=== PATIENT | female | born 1960 | race Caucasian/White ===

== ENCOUNTER 2018-06-08 10:31 | Inpatient (IN) | payer BC, MEDICAID, OTHER ==
[2018-06-08 10:38] VITALS: BMI 24.2
[2018-06-08 11:57] LABS: BASO % 0.3 % (0.0-2.0); EOS # 0.1 K/uL (0.0-0.7); EOS % 1.8 % (0.0-4.0); LYMPH # 2.9 K/uL (1.0-4.3); LYMPH % 45.9 % (20.0-40.0); MEAN CELL VOLUME 113.3 fL (81.0-99.0); MEAN CORPUSCULAR HEMOGLOBIN 40.8 pg (27.0-31.0); MEAN PLATELET VOLUME 8.5 fL (7.2-11.7); MONO # 0.2 K/uL (0.0-0.8); MONO % 3.2 % (0.0-10.0); NEUT % 48.8 % (50.0-75.0); NRBC % 0.2 % (0.0-2.0); RBC 1.16 Mil/uL (3.80-5.20); RED CELL DISTRIBUTION WIDTH 29.7 % (11.5-14.5); WHITE BLOOD COUNT 6.2 K/uL (4.8-10.8)
[2018-06-08 12:04] LABS: HEMOGLOBIN 4.7 g/dL (11.0-16.0)
[2018-06-08 12:13] LABS: ALB/GLOB RATIO 1.9 (1.0-2.1); ALBUMIN 4.7 g/dL (3.5-5.0); ALT/SGPT 55 U/L (9-52); AST/SGOT 118 U/L (14-36); BLOOD UREA NITROGEN 9 mg/dL (7-17); CALCIUM 9.3 mg/dl (8.6-10.4); GFR AFRICAN-AMERICAN > 60; GFR NON-AFRICAN AMERICAN > 60; LIPASE 91 U/L (23-300)
[2018-06-08 12:23] LABS: SQUAMOUS EPITHIAL 2 /hpf (0-5); URINE BACTERIA OCC (<OCC); URINE BILIRUBIN NEGATIVE (NEGATIVE); URINE BLOOD NEGATIVE (NEGATIVE); URINE CLARITY Clear (Clear); URINE COLOR Yellow (YELLOW); URINE GLUCOSE (UA) NORMAL (Normal); URINE LEUKOCYTE ESTERASE 3+ Leu/uL (Negative); URINE PROTEIN NEGATIVE (NEGATIVE)
--- NOTE | 2018-06-08 12:27 | C.PDOC ---
History Of Present Illness 57yo female, otherwise well, comes to ER with complaints of "yellow" skin. Patient states she had UTI symptoms 1 month ago, including hematuria x couple days. Patient states she did not get a chance to see her PMD as they were away on vacation and was seen yesterday. She had a UDip done in office which showed UTI. Patient was started on a course of cipro. She presents today as her symptoms are still present. She denies any headache, dizziness, palpitations, shortness of breath, or chest pain. She offers no additional medical complaints. Time Seen by Provider: 06/08/18 11:27 Chief Complaint (Nursing): Female Genitourinary History Per: Patient History/Exam Limitations: no limitations Onset/Duration Of Symptoms: Persistent Current Symptoms Are (Timing): Still Present Reports Recently: Treated By A Physician Additional History Per: Patient Past Medical History Reviewed: Historical Data, Nursing Documentation, Vital Signs Vital Signs: Last Vital Signs Temp 98.4 F 06/12/18 07:00 Pulse 76 06/12/18 07:00 Resp 20 06/12/18 07:00 BP 108/66 06/12/18 07:00 Pulse Ox 99 06/12/18 07:00 - Medical History PMH: No Chronic Diseases Surgical History: No Surg Hx Family History: States: No Known Family Hx, Unknown Family Hx - Social History Hx Tobacco Use: No Hx Alcohol Use: No Hx Substance Use: No - Immunization History Hx Influenza Vaccination: No Hx Pneumococcal Vaccination: No Review Of Systems Except As Marked, All Systems Reviewed And Found Negative. Constitutional: Positive for: Other (yellow skin). Negative for: Fever, Chills Cardiovascular: Negative for: Chest Pain, Palpitations Respiratory: Negative for: Shortness of Breath Gastrointestinal: Negative for: Vomiting, Abdominal Pain, Hematochezia, Hematemesis Genitourinary: Positive for: Dysuria, Hematuria (now resolved) Musculoskeletal: Negative for: Back Pain Physical Exam - Physical Exam Appears: Non-toxic Skin: Warm, Dry, Pale, Jaundice Head: Atraumatic, Normacephalic Eye(s): bilateral: PERRL, EOMI, Conjunctiva Pale Oral Mucosa: Moist Neck: Normal ROM, Supple Chest: Symmetrical Cardiovascular: Rhythm Regular, No Murmur Respiratory: Normal Breath Sounds Gastrointestinal/Abdominal: Normal Exam, Soft, No Tenderness, No Guarding, No Rebound Back: Normal Inspection, No CVA Tenderness Extremity: Normal ROM, No Pedal Edema Neurological/Psych: Oriented x3, Normal Speech, Normal Cognition, Normal Motor, Normal Sensation ED Course And Treatment - Laboratory Results Result Diagrams: 06/12/18 07:08 06/12/18 07:08 O2 Sat by Pulse Oximetry: 100 (RA) Pulse Ox Interpretation: Normal Medical Decision Making Medical Decision Making: Plan: -- Labs -- Urine culture -- Urinalysis Rectal exam: Brown stool noted. No blood noted. Occult stool sent for analysis. Labs reviewed, and patient had low hemoglobin. Case discussed with Dr. Patel and patient to be admitted under hospitalist. Type and screen ordered for blood transfusion. [address] Tovar, hospitalist and patient admitted under his service. Disposition Discussed With DrAngel: Dereck Patel - Disposition Disposition: HOME/ ROUTINE Disposition Time: 12:26 Condition: SERIOUS - Clinical Impression Clinical Impression: Anemia - Scribe Statement The provider has reviewed the documentation as recorded by the Lucy Mendez Provider Attestation: All medical record entries made by the Jaspalibjackie were at my direction and personally dictated by me. I have reviewed the chart and agree that the record accurately reflects my personal performance of the history, physical exam, medical decision making, and the department course for this patient. I have also personally directed, reviewed, and agree with the discharge instructions and disposition. Decision To Admit - Pt Status Changed To: Hospital Disposition Of: Inpatient - Admit Certification Admit to Inpatient:: After my assessment, the patient will require hospitalization for at least two midnights. This is because of the severity of symptoms shown, intensity of services needed, and/or the medical risk in this patient being treated as an outpatient. - InPatient: Physician Admission Certification: I certify that this patient requires 2 or more midnights of care for the following reason:: severe anemia and complications - . Bed Request Type: Regular Patient Diagnosis: Anemia
[2018-06-08 13:33] LABS: MEAN CELL VOLUME 115.1 fL (81.0-99.0); MEAN CORPUSCULAR HGB CONC 35.6 g/dL (33.0-37.0); MEAN PLATELET VOLUME 8.4 fL (7.2-11.7); RBC 1.06 Mil/uL (3.80-5.20); WHITE BLOOD COUNT 4.9 K/uL (4.8-10.8)
[2018-06-08 13:38] LABS: HEMOGLOBIN 4.3 g/dL (11.0-16.0)
[2018-06-08 13:47] LABS: FDP INTERPRETATION POSITIVE (NEGATIVE); FDP QUANTITY >10<40 ug/mL (<10)
[2018-06-08 14:04] LABS: D DIMER 1832 ng/mlDDU (0-243)
--- NOTE | 2018-06-08 16:09 | CP.PCM.HP ---
History of Present Illness - History of Present Illness History of Present Illness: Medicine note for Hospitalist Service 57 year old postmenopausal female with PMHx: COPD presents to the ED with complaints of urinary frequency and fever for the past month. Patient also states that she noticed a change in color and odor of her urine from yellow to red and tailbone pain that started around the same time. She states that her tailbone pain feels tingly and does not radiate. She has been taking Tylenol 250 mg, twice a day, for the past 2 weeks for the fever and still going to work. 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 She denies having a UTI before. She also complains of generalized weakness, mild shortness of breath that she attributes with her COPD , and dark stools that she attributes to the new antibiotic that she is taking but does not know the name of. Her son at bedside states that she has looked more pale recently and her skin looks jaundiced. She also complains of a malodorous smell and itchiness from her vaginal but no vaginal discharge or bleeding that also started a month ago. She states that the malodorous smell from her vagina is the reason why she stopped eating meat several weeks ago. Patient denies dysuria, chest pain, palpitations, nausea, vomiting, diarrhea, constipation, abdominal pain, and numbness in the extremities. Present on Admission - Present on Admission Any Indicators Present on Admission: No History of DVT/PE: No History of Uncontrolled Diabetes: No Review of Systems - Constitutional Constitutional: Chills, Fatigue, Lethargy, Night Sweats. absent: Weight Loss - EENT Eyes: Other ("puffiness") Nose/Mouth/Throat: absent: Bleeding Gums, Throat Swelling, Tongue Swelling, Facial Pain, Neck Pain - Cardiovascular Cardiovascular: Palpitations. absent: Chest Pain, Dyspnea, Edema, Pain Radiating to Arm/Neck/Jaw, Leg Edema, Lightheadedness, Pedal Edema, Radiating Pain, Syncope - Respiratory Respiratory: absent: Cough, Hemoptysis, Wheezing, Snoring, Stridor - Gastrointestinal Gastrointestinal: Other (Dark stools) - Genitourinary Genitourinary: Hematuria, Urinary Frequency - Reproductive: Female Reproductive:Female: No Menses for 6 Months, Vaginal Odor. absent: Vaginal Discharge, Vaginal Pruritis - Menstruation Menstruation: Amenorrhea, Post Menopausal - Musculoskeletal Musculoskeletal: Back Pain Additional comments: coccygeal non radiating pain - Integumentary Integumentary: Jaundice Additional comments: paleness - Neurological Neurological: As Per HPI - Psychiatric Psychiatric: Anxiety - Endocrine Endocrine: Palpitations - Hematologic/Lymphatic Hematologic: As Per HPI Past Patient History - Past Medical History & Family History Past Medical History?: Yes Pertinent Family History: Mother and Father type 2 DM, Sister Immunodeficiency - Past Social History Smoking Status: Former Smoker Alcohol: Occasional - PULMONARY Hx Chronic Obstructive Pulmonary Disease (COPD): Yes - GENITOURINARY/GYNECOLOGICAL Other/Comment: Bilateral Laproscopic ovarian cyst removal - PSYCHIATRIC Hx Substance Use: No - SURGICAL HISTORY Hx Surgeries: Yes Other/Comment: cyst removal in ovary Meds Allergies/Adverse Reactions: Allergies Allergy/AdvReac Type Severity Reaction Status Date / Time Penicillins Allergy Verified 06/08/18 10:37 Physical Exam - Constitutional Appears: Non-toxic, In Acute Distress - Eye Exam Eye Exam: EOMI, Periorbital swelling, Scleral icterus. absent: Nystagmus - ENT Exam ENT Exam: Mucous Membranes Moist - Neck Exam Neck exam: Negative for: Lymphadenopathy - Respiratory Exam Respiratory Exam: Clear to Auscultation Bilateral, NORMAL BREATHING PATTERN. absent: Rales, Rhonchi, Wheezes - Cardiovascular Exam Cardiovascular Exam: RRR, +S1, +S2 - GI/Abdominal Exam GI & Abdominal Exam: Normal Bowel Sounds, Soft. absent: Distended, Firm, Tenderness - Extremities Exam Extremities exam: Positive for: full ROM, pedal pulses present. Negative for: calf tenderness, joint swelling, pedal edema, tenderness - Back Exam Back exam: tenderness (coccx) - Neurological Exam Neurological exam: Alert, CN II-XII Intact, Normal Gait, Oriented x3 - Psychiatric Exam Psychiatric exam: Anxious - Skin Skin Exam: Intact, Pallor, Warm Results - Vital Signs Recent Vital Signs: Last Vital Signs Temp 99.2 F 06/08/18 15:06 Pulse 115 H 06/08/18 15:06 Resp 20 06/08/18 15:06 BP 125/66 06/08/18 15:06 Pulse Ox 100 06/08/18 15:06 - Labs Result Diagrams: 06/08/18 13:29 06/08/18 11:51 Labs: Laboratory Results - last 24 hr 06/08/18 06/08/18 06/08/18 11:51 11:51 12:04 WBC 6.2 RBC 1.16 L Hgb 4.7 L* Hct 13.1 L MCV 113.3 H MCH 40.8 H MCHC 36.0 RDW 29.7 H Plt Count 125 L MPV 8.5 Neut % (Auto) 48.8 L Lymph % (Auto) 45.9 H [place] % (Auto) 3.2 Eos % (Auto) 1.8 Baso % (Auto) 0.3 Neut # (Auto) 3.0 Lymph # (Auto) 2.9 [place] # (Auto) 0.2 Eos # (Auto) 0.1 Baso # (Auto) 0.0 Differential Comment Smear Path Review Fibrin Degrad Products Fibrin Degrad Prod, Qt D-Dimer, Quantitative Sodium 139 Potassium 4.2 Chloride 101 Carbon Dioxide 26 Anion Gap 17 BUN 9 Creatinine 0.5 L Est GFR ( Amer) > 60 Est GFR (Non-Af Amer) > 60 Random Glucose 119 H Calcium 9.3 Total Bilirubin 2.2 H AST 118 H ALT 55 H Alkaline Phosphatase 54 Total Protein 7.2 Albumin 4.7 Globulin 2.5 Albumin/Globulin Ratio 1.9 Lipase 91 Urine Color Yellow Urine Clarity Clear Urine pH 6.0 Ur Specific [place] 1.015 Urine Protein Negative Urine Glucose (UA) Normal Urine Ketones Trace Urine Blood Negative Urine Nitrate Negative Urine Bilirubin Negative Urine Urobilinogen 2.0 H Ur Leukocyte Esterase 3+ H Urine WBC (Auto) 6 H Urine RBC (Auto) 1 Ur Squamous Epith Cells 2 Urine Bacteria Occ H Stool Occult Blood Blood Type Blood Type Confirm Antibody Screen 06/08/18 06/08/18 06/08/18 12:25 12:40 13:28 WBC RBC Hgb Hct MCV MCH MCHC RDW Plt Count MPV Neut % (Auto) Lymph % (Auto) [place] % (Auto) Eos % (Auto) Baso % (Auto) Neut # (Auto) Lymph # (Auto) [place] # (Auto) Eos # (Auto) Baso # (Auto) Differential Comment Smear Path Review Fibrin Degrad Products Positive H Fibrin Degrad Prod, Qt >10<40 H D-Dimer, Quantitative 1832 H Sodium Potassium Chloride Carbon Dioxide Anion Gap BUN Creatinine Est GFR ( Amer) Est GFR (Non-Af Amer) Random Glucose Calcium Total Bilirubin AST ALT Alkaline Phosphatase Total Protein Albumin Globulin Albumin/Globulin Ratio Lipase Urine Color Urine Clarity Urine pH Ur Specific [place] Urine Protein Urine Glucose (UA) Urine Ketones Urine Blood Urine Nitrate Urine Bilirubin Urine Urobilinogen Ur Leukocyte Esterase Urine WBC (Auto) Urine RBC (Auto) Ur Squamous Epith Cells Urine Bacteria Stool Occult Blood Negative Blood Type O POSITIVE Blood Type Confirm O POSITIVE Antibody Screen Negative 06/08/18 13:29 WBC 4.9 RBC 1.06 L Hgb 4.3 L* Hct 12.2 L MCV 115.1 H MCH 41.0 H MCHC 35.6 RDW 29.0 H Plt Count 107 L MPV 8.4 Neut % (Auto) Lymph % (Auto) [place] % (Auto) Eos % (Auto) Baso % (Auto) Neut # (Auto) Lymph # (Auto) [place] # (Auto) Eos # (Auto) Baso # (Auto) Differential Comment Smear Path Review Fibrin Degrad Products Fibrin Degrad Prod, Qt D-Dimer, Quantitative Sodium Potassium Chloride Carbon Dioxide Anion Gap BUN Creatinine Est GFR ( Amer) Est GFR (Non-Af Amer) Random Glucose Calcium Total Bilirubin AST ALT Alkaline Phosphatase Total Protein Albumin Globulin Albumin/Globulin Ratio Lipase Urine Color Urine Clarity Urine pH Ur Specific [place] Urine Protein Urine Glucose (UA) Urine Ketones Urine Blood Urine Nitrate Urine Bilirubin Urine Urobilinogen Ur Leukocyte Esterase Urine WBC (Auto) Urine RBC (Auto) Ur Squamous Epith Cells Urine Bacteria Stool Occult Blood Blood Type Blood Type Confirm Antibody Screen Assessment & Plan - Assessment and Plan (Free Text) Assessment: 57yo female with a PMH of COPD admitted with 1 month history of hematuria and increased frequency and 2 week history of vaginal discomfort, fevers, night sweats, chills, SOB . Plan: Anemia -Pt given 2 units of PRBCs starting at 4pm 06/08/2018 -Dr Harley (hematology) consulted -Dr Hoffman (GI) consulted plan: - Check RUQ US, f/u CT to further guide plan - Fractionate Bilirubin - Check Viral Hepatitis, INR, APAP lvl, TSH - Daily CBC, CMP - Agree with hemolytic w/u, consider Hematology consult -Hgb 4.3, D-Dimer 1833, Fibrin degr +, Likely hemolytic -Haptoglobin and LDH pending -Vit B12 and Folate levels pending Thrombocytopenia -Platelet count 104 -hemolysis likely process due to +fibrin, D-dimer, Bili 2.2, -Hematology consulted -AST 118, ALT 55 slightly elevated, -GI consulted: f/u abdominal ultrasound to r/o liver sequestration -will transfuse platelets if drops below 90 Macrocytosis -MCV 113 -RDW of 29. -Hgb 4.3 -Brown stool on ED exam and occult negative; therefore, GI source of bleeding unlikely. -possible hemolysis with +fibrin degradation and elevated D dimer. Coccygeal Pain -Pelvic CT ordered -R/o mets, infectious process -Tylenol PRN 650mg limit of 2g daily Shortness of Breath -likely due to anemia -COPD unlikely, LCTA bilaterally -2 units of PRBCs transfusing (06/08/2018) started 4pm -Abd and Pelvic CT pending: R/O possible source of bleed Hx of COPD - no acute exacerbation -on home nebulizer PRN -can start duonebs PRN disposition: Pt receiving 2 units of PRBCs, hematology consulted, Reji Womack PGY1
--- NOTE | 2018-06-08 16:22 | CP.PCM.CON ---
<Garrett Moreira - Last Filed: 06/08/18 16:44> History of Present Illness - History of Present Illness History of Present Illness: PGY-4 GI Fellow Initial Consult Note Mrs. Torres is a 57 yo Hisp Female with COPD presenting with complaint of yellow skin. She states that about 1 month ago she believes she began to have a UTI in that she noticed polyuria, back pain and that her urine appeared more orange in color. She ignored it for a few weeks thinking it would go away. About 10 days or so ago she then noticed her skin started to turn yellow, and she started to be feel some generalized weakness. A few days ago she called was finally tested for UTI with UA that returned dirty and she was given an antibiotic that she cannot recall the name of (Cipro?). However, after she continue with yellow skin and fatigue she decided to present to the ED for evaluation. In the ED, she was vitally stable with a HR 100-110, found to have a Hgb of 4.7 from unknown baseline. GI consulted for anemia. As far as her GI health, she states that she normally moves her bowels daily with yellow/brown formed stools. However, she thinks since taking the antibiotic for her UTI that they have become more dark brown. She denied any melena, hematochezia, hematemesis, weight loss, rashes. For the recent low back pain, she states that she has been taking two tabs of acetaminophen 250 mg in the AM. She denies any NSAIDs, EtOH use or illicit drugs. She has never had any EGD/CSPY. 12 point ROS negative other than stated above MHx: COPD SurgHx: Ovarian cyts Meds: Cipro? Acetaminophen FamHx: Denies h/o GI or Liver disorders SocHx: Quit tobacco and EtOH 7 years ago, 18 pack year smoker, denied illicits All: PCN - rash and swelling Past Patient History - Past Social History Smoking Status: Former Smoker - PSYCHIATRIC Hx Substance Use: No - SURGICAL HISTORY Hx Surgeries: Yes Other/Comment: cyst removal in ovary Meds Allergies/Adverse Reactions: Allergies Allergy/AdvReac Type Severity Reaction Status Date / Time Penicillins Allergy Verified 06/08/18 10:37 Physical Exam - Constitutional Appears: Well, Non-toxic, No Acute Distress - Head Exam Head Exam: ATRAUMATIC, NORMAL INSPECTION - Eye Exam Eye Exam: EOMI, Scleral icterus. absent: Conjunctival injection Additional comments: +Conjunctival pallor - ENT Exam ENT Exam: Mucous Membranes Moist, Normal External Ear Exam. absent: Mucous Membranes Dry - Respiratory Exam Respiratory Exam: Clear to Auscultation Bilateral, NORMAL BREATHING PATTERN. absent: Accessory Muscle Use, Chest Wall Tenderness, Prolonged Expiratory Phase , Respiratory Distress - Cardiovascular Exam Cardiovascular Exam: Tachycardia, REGULAR RHYTHM - GI/Abdominal Exam GI & Abdominal Exam: Normal Bowel Sounds, Soft. absent: Bruit, Diminished Bowel Sounds, Distended, Firm, Guarding, Hernia, Hyperactive Bowel Sounds, Hypoactive Bowel Sounds, Mass, Organomegaly, Pulsatile Mass, Rebound, Rigid, Tenderness - Rectal Exam Rectal Exam: Deferred Additional comments: Per document ED note, brown stool and occult negative; therefore did not repeat - Extremities Exam Extremities exam: Positive for: normal inspection. Negative for: joint swelling , pedal edema - Neurological Exam Neurological exam: Alert, CN II-XII Intact - Psychiatric Exam Psychiatric exam: Normal Affect, Normal Mood - Skin Skin Exam: Warm Additional comments: jaundiced Results - Vital Signs Recent Vital Signs: Last Vital Signs Temp 99.2 F 06/08/18 15:06 Pulse 115 H 06/08/18 15:06 Resp 20 06/08/18 15:06 BP 125/66 06/08/18 15:06 Pulse Ox 100 06/08/18 15:06 - Labs Result Diagrams: 06/08/18 13:29 06/08/18 11:51 Labs: Laboratory Results - last 24 hr 06/08/18 06/08/18 06/08/18 11:51 11:51 12:04 WBC 6.2 RBC 1.16 L Hgb 4.7 L* Hct 13.1 L MCV 113.3 H MCH 40.8 H MCHC 36.0 RDW 29.7 H Plt Count 125 L MPV 8.5 Neut % (Auto) 48.8 L Lymph % (Auto) 45.9 H Grainger % (Auto) 3.2 Eos % (Auto) 1.8 Baso % (Auto) 0.3 Neut # (Auto) 3.0 Lymph # (Auto) 2.9 Grainger # (Auto) 0.2 Eos # (Auto) 0.1 Baso # (Auto) 0.0 Differential Comment Smear Path Review Fibrin Degrad Products Fibrin Degrad Prod, Qt D-Dimer, Quantitative Sodium 139 Potassium 4.2 Chloride 101 Carbon Dioxide 26 Anion Gap 17 BUN 9 Creatinine 0.5 L Est GFR ( Amer) > 60 Est GFR (Non-Af Amer) > 60 Random Glucose 119 H Calcium 9.3 Total Bilirubin 2.2 H AST 118 H ALT 55 H Alkaline Phosphatase 54 Total Protein 7.2 Albumin 4.7 Globulin 2.5 Albumin/Globulin Ratio 1.9 Lipase 91 Urine Color Yellow Urine Clarity Clear Urine pH 6.0 Ur Specific [place] 1.015 Urine Protein Negative Urine Glucose (UA) Normal Urine Ketones Trace Urine Blood Negative Urine Nitrate Negative Urine Bilirubin Negative Urine Urobilinogen 2.0 H Ur Leukocyte Esterase 3+ H Urine WBC (Auto) 6 H Urine RBC (Auto) 1 Ur Squamous Epith Cells 2 Urine Bacteria Occ H Stool Occult Blood Blood Type Blood Type Confirm Antibody Screen 06/08/18 06/08/18 06/08/18 12:25 12:40 13:28 WBC RBC Hgb Hct MCV MCH MCHC RDW Plt Count MPV Neut % (Auto) Lymph % (Auto) Grainger % (Auto) Eos % (Auto) Baso % (Auto) Neut # (Auto) Lymph # (Auto) Grainger # (Auto) Eos # (Auto) Baso # (Auto) Differential Comment Smear Path Review Fibrin Degrad Products Positive H Fibrin Degrad Prod, Qt >10<40 H D-Dimer, Quantitative 1832 H Sodium Potassium Chloride Carbon Dioxide Anion Gap BUN Creatinine Est GFR ( Amer) Est GFR (Non-Af Amer) Random Glucose Calcium Total Bilirubin AST ALT Alkaline Phosphatase Total Protein Albumin Globulin Albumin/Globulin Ratio Lipase Urine Color Urine Clarity Urine pH Ur Specific [place] Urine Protein Urine Glucose (UA) Urine Ketones Urine Blood Urine Nitrate Urine Bilirubin Urine Urobilinogen Ur Leukocyte Esterase Urine WBC (Auto) Urine RBC (Auto) Ur Squamous Epith Cells Urine Bacteria Stool Occult Blood Negative Blood Type O POSITIVE Blood Type Confirm O POSITIVE Antibody Screen Negative 06/08/18 13:29 WBC 4.9 RBC 1.06 L Hgb 4.3 L* Hct 12.2 L MCV 115.1 H MCH 41.0 H MCHC 35.6 RDW 29.0 H Plt Count 107 L MPV 8.4 Neut % (Auto) Lymph % (Auto) Grainger % (Auto) Eos % (Auto) Baso % (Auto) Neut # (Auto) Lymph # (Auto) Grainger # (Auto) Eos # (Auto) Baso # (Auto) Differential Comment Smear Path Review Fibrin Degrad Products Fibrin Degrad Prod, Qt D-Dimer, Quantitative Sodium Potassium Chloride Carbon Dioxide Anion Gap BUN Creatinine Est GFR ( Amer) Est GFR (Non-Af Amer) Random Glucose Calcium Total Bilirubin AST ALT Alkaline Phosphatase Total Protein Albumin Globulin Albumin/Globulin Ratio Lipase Urine Color Urine Clarity Urine pH Ur Specific [place] Urine Protein Urine Glucose (UA) Urine Ketones Urine Blood Urine Nitrate Urine Bilirubin Urine Urobilinogen Ur Leukocyte Esterase Urine WBC (Auto) Urine RBC (Auto) Ur Squamous Epith Cells Urine Bacteria Stool Occult Blood Blood Type Blood Type Confirm Antibody Screen Assessment & Plan - Assessment and Plan (Free Text) Assessment: 57 yo Hisp Female with COPD presenting with jaundice and fatigue. # Acute Macrocytic Anemia: Hgb 4.7, MCV 113 with elevated RDW of 29. Brown stool on ED exam and occult negative; therefore, GI source of bleeding unlikely. Given anemia and jaundice concerning for possible hemolytic process with +fibrin degradation and elevated D dimer. # Jaundice, elevate bilirubin, elevated transaminases: Bili 2.2, AST 118, ALT 55. Could be related to hemolytic process again. Transaminases in EtOH pattern though patient reports sobriety for years. Painless jaundice always raises concern for malignancy, though somewhat reassuringly Alk Phos is not elevated. AST, ALT not elevated to the degree of acetaminophen OD, but should r /u given reports of taking recently. Plan: - Check RUQ US, f/u CT to further guide plan - Fractionate Bilirubin - Check Viral Hepatitis, INR, APAP lvl, TSH - Daily CBC, CMP - Agree with hemolytic w/u, consider Hematology consult Thanks you for the consult. Will cont to follow. Pt seen and examined with Dr. Hoffman <Clinton Hoffman Y - Last Filed: 06/08/18 18:29> Meds - Medications Medications: Current Medications Acetaminophen (Tylenol 325mg Tab) 650 mg PO Q4H PRN PRN Reason: Pain, moderate (4-7) Albuterol/Ipratropium (Duoneb 3 Mg/0.5 Mg (3 Ml) Ud) 3 ml INH RQ2 PRN PRN Reason: Shortness of Breath Folic Acid (Folic Acid) 1 mg PO BID ELVA Last Admin: 06/08/18 17:46 Dose: 1 mg Sodium Chloride (Sodium Chloride 0.9%) 1,000 mls @ 100 mls/hr IV .Q10H ELVA Results - Vital Signs Recent Vital Signs: Last Vital Signs Temp 98.7 F 06/08/18 17:46 Pulse 106 H 06/08/18 17:46 Resp 20 06/08/18 17:46 BP 118/76 06/08/18 17:46 Pulse Ox 100 06/08/18 15:06 - Labs Result Diagrams: 06/08/18 13:29 06/08/18 11:51 Labs: Laboratory Results - last 24 hr 06/08/18 06/08/18 06/08/18 11:51 11:51 12:04 WBC 6.2 RBC 1.16 L Hgb 4.7 L* Hct 13.1 L MCV 113.3 H MCH 40.8 H MCHC 36.0 RDW 29.7 H Plt Count 125 L MPV 8.5 Neut % (Auto) 48.8 L Lymph % (Auto) 45.9 H Grainger % (Auto) 3.2 Eos % (Auto) 1.8 Baso % (Auto) 0.3 Neut # (Auto) 3.0 Lymph # (Auto) 2.9 Grainger # (Auto) 0.2 Eos # (Auto) 0.1 Baso # (Auto) 0.0 Differential Comment Smear Path Review Haptoglobin Fibrin Degrad Products Fibrin Degrad Prod, Qt D-Dimer, Quantitative Sodium 139 Potassium 4.2 Chloride 101 Carbon Dioxide 26 Anion Gap 17 BUN 9 Creatinine 0.5 L Est GFR ( Amer) > 60 Est GFR (Non-Af Amer) > 60 Random Glucose 119 H Calcium 9.3 Total Bilirubin 2.2 H AST 118 H ALT 55 H Alkaline Phosphatase 54 Total Protein 7.2 Albumin 4.7 Globulin 2.5 Albumin/Globulin Ratio 1.9 Lipase 91 Urine Color Yellow Urine Clarity Clear Urine pH 6.0 Ur Specific [place] 1.015 Urine Protein Negative Urine Glucose (UA) Normal Urine Ketones Trace Urine Blood Negative Urine Nitrate Negative Urine Bilirubin Negative Urine Urobilinogen 2.0 H Ur Leukocyte Esterase 3+ H Urine WBC (Auto) 6 H Urine RBC (Auto) 1 Ur Squamous Epith Cells 2 Urine Bacteria Occ H Stool Occult Blood Blood Type Blood Type Confirm Antibody Screen 06/08/18 06/08/18 06/08/18 12:25 12:40 13:28 WBC RBC Hgb Hct MCV MCH MCHC RDW Plt Count MPV Neut % (Auto) Lymph % (Auto) Grainger % (Auto) Eos % (Auto) Baso % (Auto) Neut # (Auto) Lymph # (Auto) Grainger # (Auto) Eos # (Auto) Baso # (Auto) Differential Comment Smear Path Review Haptoglobin Fibrin Degrad Products Positive H Fibrin Degrad Prod, Qt >10<40 H D-Dimer, Quantitative 1832 H Sodium Potassium Chloride Carbon Dioxide Anion Gap BUN Creatinine Est GFR ( Amer) Est GFR (Non-Af Amer) Random Glucose Calcium Total Bilirubin AST ALT Alkaline Phosphatase Total Protein Albumin Globulin Albumin/Globulin Ratio Lipase Urine Color Urine Clarity Urine pH Ur Specific [place] Urine Protein Urine Glucose (UA) Urine Ketones Urine Blood Urine Nitrate Urine Bilirubin Urine Urobilinogen Ur Leukocyte Esterase Urine WBC (Auto) Urine RBC (Auto) Ur Squamous Epith Cells Urine Bacteria Stool Occult Blood Negative Blood Type O POSITIVE Blood Type Confirm O POSITIVE Antibody Screen Negative 06/08/18 06/08/18 06/08/18 13:29 16:45 16:46 WBC 4.9 RBC 1.06 L Hgb 4.3 L* Hct 12.2 L MCV 115.1 H MCH 41.0 H MCHC 35.6 RDW 29.0 H Plt Count 107 L MPV 8.4 Neut % (Auto) Lymph % (Auto) Grainger % (Auto) Eos % (Auto) Baso % (Auto) Neut # (Auto) Lymph # (Auto) Grainger # (Auto) Eos # (Auto) Baso # (Auto) Differential Comment Smear Path Review Haptoglobin < 20.0 L Fibrin Degrad Products Fibrin Degrad Prod, Qt D-Dimer, Quantitative Sodium Potassium Chloride Carbon Dioxide Anion Gap BUN Creatinine Est GFR ( Amer) Est GFR (Non-Af Amer) Random Glucose Calcium Total Bilirubin AST ALT Alkaline Phosphatase Total Protein Albumin Globulin Albumin/Globulin Ratio Lipase Urine Color Urine Clarity Urine pH Ur Specific [place] Urine Protein Urine Glucose (UA) Urine Ketones Urine Blood Urine Nitrate Urine Bilirubin Urine Urobilinogen Ur Leukocyte Esterase Urine WBC (Auto) Urine RBC (Auto) Ur Squamous Epith Cells Urine Bacteria Stool Occult Blood Negative Blood Type Blood Type Confirm Antibody Screen Attending/Attestation - Attestation I have personally seen and examined this patient.: Yes I have fully participated in the care of the patient.: Yes I have reviewed all pertinent clinical information: Yes Notes (Text): 06/08/18 18:21 I have seen and examined patient with GI fellow. Agree with above documentation with the following additions. In brief, this is a 57 year old female with history of COPD who presents to hospital with complaints of progressive fatigue and painless jaundice. She describes symptoms for the past 10 days which were getting worse prompting her to come to hospital. She reports recent UTI which she took Ciprofloxacin for 3 days. She also endorses loss of appetite with nausea, progressive lethargy and yellow appearance of skin and eyes. She denies abdominal pain, vomiting, weight loss, pruritis, or prior history of liver disease. She denies recent ETOH use, admits to minimal tylenol use for back related discomfort. No prior endoscopic evaluation. COPD Fatigue Macrocytic anemia Jaundice, transaminitis - Diet as tolerated - Patient currently receiving PRBC transfusion, monitor H/H. Rectal exam performed today showed brown stool, occult blood negative. - Obtain abdominal US to evaluate for biliary obstruction - CT imaging ordered by medical team, follow up results - Fractionate bilirubin, continue to monitor LFTs - Obtain viral hepatitis panel and acetaminophen level - Given loss of appetite in patient with prior heavy smoking history, malignancy must be ruled out. Will consider EGD evaluation tomorrow morning pending imaging results, NPO after midnight.
[2018-06-08] MEDS ORDERED: Iodixanol 320 MG/ML 100 ML BOTTLE IV ONE (16:27)
[2018-06-08] MEDS: Sodium Chloride 0.9% 1,000 ML IV SCH (18:00)
[2018-06-08] MEDS ORDERED: Albuterol-Ipratrop 3 mg / 0.5 (3 ml) UD INH PRN (18:05)
[2018-06-08 18:46] LABS: FOLATE > 20.0 ng/mL
[2018-06-08 19:04] LABS: BILIRUBIN,DIRECT 0.7 mg/dL (0.0-0.4)
[2018-06-08 19:36] LABS: HEPATITIS B SURFACE AG Negative (NEGATIVE)
[2018-06-08 19:41] LABS: HEPATITIS A IGM NEGATIVE (NEGATIVE)
[2018-06-08 19:42] LABS: HEPATITIS B CORE AB NEGATIVE (NEGATIVE)
[2018-06-08 19:53] LABS: HEPATITIS C ANTIBODY NEGATIVE (NEGATIVE)
--- NOTE | 2018-06-08 20:22 | CP.PCM.CON ---
History of Present Illness - History of Present Illness History of Present Illness: 57 yo woman admitted with severe anemia and pancytopenia, increased total bili, SGOT, very high LDH, decreased haptoglobin, R/O acute hemolytic anemia, Beverly and retics pending. The patient is currently in radilolgy getting CAT scan. DD- Autoimmune hemolytic anemia, Beverly positive, Beverly negative-cryoglobulinemia, ?? PNH- pancytopenia, usually associated with iron def and hemoglobinuria, hemoglobinopathy unlikely, will need to do testing for G6PD(levels normal during hemolysis) after acute hemolytic process resolves, if all else negative Past Patient History - Past Medical History & Family History Past Medical History?: Yes - Past Social History Smoking Status: Former Smoker - PULMONARY Hx Chronic Obstructive Pulmonary Disease (COPD): Yes - MUSCULOSKELETAL/RHEUMATOLOGICAL Hx Falls: No - GENITOURINARY/GYNECOLOGICAL Other/Comment: Bilateral Laproscopic ovarian cyst removal - PSYCHIATRIC Hx Substance Use: No - SURGICAL HISTORY Hx Surgeries: Yes Other/Comment: cyst removal in ovary - ANESTHESIA Hx Anesthesia: Yes Hx Anesthesia Reactions: No Hx Malignant Hyperthermia: No Has any member of the family had a problem w/ anesthesia?: No Meds Allergies/Adverse Reactions: Allergies Allergy/AdvReac Type Severity Reaction Status Date / Time Penicillins Allergy Verified 06/08/18 10:37 - Medications Medications: Current Medications Acetaminophen (Tylenol 325mg Tab) 650 mg PO Q4H PRN PRN Reason: Pain, moderate (4-7) Albuterol/Ipratropium (Duoneb 3 Mg/0.5 Mg (3 Ml) Ud) 3 ml INH RQ2 PRN PRN Reason: Shortness of Breath Folic Acid (Folic Acid) 1 mg PO BID ELVA Last Admin: 06/08/18 17:46 Dose: 1 mg Sodium Chloride (Sodium Chloride 0.9%) 1,000 mls @ 100 mls/hr IV .Q10H ELVA Results - Vital Signs Recent Vital Signs: Last Vital Signs Temp 99.4 F 06/08/18 19:44 Pulse 89 06/08/18 19:44 Resp 20 06/08/18 19:44 BP 101/59 L 06/08/18 19:44 Pulse Ox 100 06/08/18 15:06 - Labs Result Diagrams: 06/08/18 13:29 06/08/18 11:51 Labs: Laboratory Results - last 24 hr 06/08/18 06/08/18 06/08/18 11:51 11:51 12:04 WBC 6.2 RBC 1.16 L Hgb 4.7 L* Hct 13.1 L MCV 113.3 H MCH 40.8 H MCHC 36.0 RDW 29.7 H Plt Count 125 L MPV 8.5 Neut % (Auto) 48.8 L Lymph % (Auto) 45.9 H Bee % (Auto) 3.2 Eos % (Auto) 1.8 Baso % (Auto) 0.3 Neut # (Auto) 3.0 Lymph # (Auto) 2.9 Bee # (Auto) 0.2 Eos # (Auto) 0.1 Baso # (Auto) 0.0 Differential Comment Smear Path Review Haptoglobin Fibrin Degrad Products Fibrin Degrad Prod, Qt D-Dimer, Quantitative Sodium 139 Potassium 4.2 Chloride 101 Carbon Dioxide 26 Anion Gap 17 BUN 9 Creatinine 0.5 L Est GFR ( Amer) > 60 Est GFR (Non-Af Amer) > 60 Random Glucose 119 H Calcium 9.3 Total Bilirubin 2.2 H Direct Bilirubin AST 118 H ALT 55 H Alkaline Phosphatase 54 Lactate Dehydrogenase Total Protein 7.2 Albumin 4.7 Globulin 2.5 Albumin/Globulin Ratio 1.9 Lipase 91 Vitamin B12 Folate TSH 3rd Generation Urine Color Yellow Urine Clarity Clear Urine pH 6.0 Ur Specific [place] 1.015 Urine Protein Negative Urine Glucose (UA) Normal Urine Ketones Trace Urine Blood Negative Urine Nitrate Negative Urine Bilirubin Negative Urine Urobilinogen 2.0 H Ur Leukocyte Esterase 3+ H Urine WBC (Auto) 6 H Urine RBC (Auto) 1 Ur Squamous Epith Cells 2 Urine Bacteria Occ H Stool Occult Blood Hepatitis A IgM Ab Hep Bs Antigen Hep B Core IgM Ab Hepatitis C Antibody Blood Type Blood Type Confirm Antibody Screen 06/08/18 06/08/18 06/08/18 12:25 12:40 13:28 WBC RBC Hgb Hct MCV MCH MCHC RDW Plt Count MPV Neut % (Auto) Lymph % (Auto) Bee % (Auto) Eos % (Auto) Baso % (Auto) Neut # (Auto) Lymph # (Auto) Bee # (Auto) Eos # (Auto) Baso # (Auto) Differential Comment Smear Path Review Haptoglobin Fibrin Degrad Products Positive H Fibrin Degrad Prod, Qt >10<40 H D-Dimer, Quantitative 1832 H Sodium Potassium Chloride Carbon Dioxide Anion Gap BUN Creatinine Est GFR ( Amer) Est GFR (Non-Af Amer) Random Glucose Calcium Total Bilirubin Direct Bilirubin AST ALT Alkaline Phosphatase Lactate Dehydrogenase Total Protein Albumin Globulin Albumin/Globulin Ratio Lipase Vitamin B12 Folate TSH 3rd Generation Urine Color Urine Clarity Urine pH Ur Specific [place] Urine Protein Urine Glucose (UA) Urine Ketones Urine Blood Urine Nitrate Urine Bilirubin Urine Urobilinogen Ur Leukocyte Esterase Urine WBC (Auto) Urine RBC (Auto) Ur Squamous Epith Cells Urine Bacteria Stool Occult Blood Negative Hepatitis A IgM Ab Hep Bs Antigen Hep B Core IgM Ab Hepatitis C Antibody Blood Type O POSITIVE Blood Type Confirm O POSITIVE Antibody Screen Negative 06/08/18 06/08/18 06/08/18 13:29 16:45 16:45 WBC 4.9 RBC 1.06 L Hgb 4.3 L* Hct 12.2 L MCV 115.1 H MCH 41.0 H MCHC 35.6 RDW 29.0 H Plt Count 107 L MPV 8.4 Neut % (Auto) Lymph % (Auto) Bee % (Auto) Eos % (Auto) Baso % (Auto) Neut # (Auto) Lymph # (Auto) Bee # (Auto) Eos # (Auto) Baso # (Auto) Differential Comment Smear Path Review Haptoglobin < 20.0 L Fibrin Degrad Products Fibrin Degrad Prod, Qt D-Dimer, Quantitative Sodium Potassium Chloride Carbon Dioxide Anion Gap BUN Creatinine Est GFR ( Amer) Est GFR (Non-Af Amer) Random Glucose Calcium Total Bilirubin Direct Bilirubin AST ALT Alkaline Phosphatase Lactate Dehydrogenase 62674 H Total Protein Albumin Globulin Albumin/Globulin Ratio Lipase Vitamin B12 Folate TSH 3rd Generation Urine Color Urine Clarity Urine pH Ur Specific [place] Urine Protein Urine Glucose (UA) Urine Ketones Urine Blood Urine Nitrate Urine Bilirubin Urine Urobilinogen Ur Leukocyte Esterase Urine WBC (Auto) Urine RBC (Auto) Ur Squamous Epith Cells Urine Bacteria Stool Occult Blood Hepatitis A IgM Ab Hep Bs Antigen Hep B Core IgM Ab Hepatitis C Antibody Blood Type Blood Type Confirm Antibody Screen 06/08/18 06/08/18 06/08/18 16:45 16:46 18:53 WBC RBC Hgb Hct MCV MCH MCHC RDW Plt Count MPV Neut % (Auto) Lymph % (Auto) Bee % (Auto) Eos % (Auto) Baso % (Auto) Neut # (Auto) Lymph # (Auto) Bee # (Auto) Eos # (Auto) Baso # (Auto) Differential Comment Smear Path Review Haptoglobin Fibrin Degrad Products Fibrin Degrad Prod, Qt D-Dimer, Quantitative Sodium Potassium Chloride Carbon Dioxide Anion Gap BUN Creatinine Est GFR ( Amer) Est GFR (Non-Af Amer) Random Glucose Calcium Total Bilirubin Direct Bilirubin 0.7 H AST ALT Alkaline Phosphatase Lactate Dehydrogenase Total Protein Albumin Globulin Albumin/Globulin Ratio Lipase Vitamin B12 267 Folate > 20.0 TSH 3rd Generation 1.16 Urine Color Urine Clarity Urine pH Ur Specific [place] Urine Protein Urine Glucose (UA) Urine Ketones Urine Blood Urine Nitrate Urine Bilirubin Urine Urobilinogen Ur Leukocyte Esterase Urine WBC (Auto) Urine RBC (Auto) Ur Squamous Epith Cells Urine Bacteria Stool Occult Blood Negative Hepatitis A IgM Ab Hep Bs Antigen Hep B Core IgM Ab Hepatitis C Antibody Blood Type Blood Type Confirm Antibody Screen 06/08/18 18:53 WBC RBC Hgb Hct MCV MCH MCHC RDW Plt Count MPV Neut % (Auto) Lymph % (Auto) Bee % (Auto) Eos % (Auto) Baso % (Auto) Neut # (Auto) Lymph # (Auto) Bee # (Auto) Eos # (Auto) Baso # (Auto) Differential Comment Smear Path Review Haptoglobin Fibrin Degrad Products Fibrin Degrad Prod, Qt D-Dimer, Quantitative Sodium Potassium Chloride Carbon Dioxide Anion Gap BUN Creatinine Est GFR ( Amer) Est GFR (Non-Af Amer) Random Glucose Calcium Total Bilirubin Direct Bilirubin AST ALT Alkaline Phosphatase Lactate Dehydrogenase Total Protein Albumin Globulin Albumin/Globulin Ratio Lipase Vitamin B12 Folate TSH 3rd Generation Urine Color Urine Clarity Urine pH Ur Specific [place] Urine Protein Urine Glucose (UA) Urine Ketones Urine Blood Urine Nitrate Urine Bilirubin Urine Urobilinogen Ur Leukocyte Esterase Urine WBC (Auto) Urine RBC (Auto) Ur Squamous Epith Cells Urine Bacteria Stool Occult Blood Hepatitis A IgM Ab Negative Hep Bs Antigen Negative Hep B Core IgM Ab Negative Hepatitis C Antibody Negative Blood Type Blood Type Confirm Antibody Screen
[2018-06-09] MEDS: Sodium Chloride 0.9% 1,000 ML IV SCH ×2 (01:29→14:17)
[2018-06-09 04:40] LABS: BASO % 0.3 % (0.0-2.0); EOS # 0.1 K/uL (0.0-0.7); EOS % 1.5 % (0.0-4.0); HEMOGLOBIN 7.4 g/dL (11.0-16.0); LYMPH # 2.7 K/uL (1.0-4.3); LYMPH % 59.6 % (20.0-40.0); MEAN CELL VOLUME 97.9 fL (81.0-99.0); MEAN CORPUSCULAR HEMOGLOBIN 34.6 pg (27.0-31.0); MEAN CORPUSCULAR HGB CONC 35.4 g/dL (33.0-37.0); MEAN PLATELET VOLUME 8.4 fL (7.2-11.7); MONO # 0.1 K/uL (0.0-0.8); MONO % 2.9 % (0.0-10.0); NEUT # 1.6 K/uL (1.8-7.0); NEUT % 35.7 % (50.0-75.0); NRBC % 0.3 % (0.0-2.0); PLATELET COUNT 88 K/uL (130-400); RBC 2.14 Mil/uL (3.80-5.20); WHITE BLOOD COUNT 4.5 K/uL (4.8-10.8)
[2018-06-09 04:42] LABS: INR 1.1; PROTHROMBIN TIME 12.4 SECONDS (9.7-12.2)
[2018-06-09 04:55] LABS: ALB/GLOB RATIO 1.9 (1.0-2.1); ALBUMIN 3.9 g/dL (3.5-5.0); ALT/SGPT 44 U/L (9-52); AST/SGOT 97 U/L (14-36); BLOOD UREA NITROGEN 8 mg/dL (7-17); CALCIUM 8.6 mg/dl (8.6-10.4); GFR AFRICAN-AMERICAN > 60; GFR NON-AFRICAN AMERICAN > 60
[2018-06-09 06:21] LABS: EOSINOPHIL 1 % (0-4); LYMPHOCYTE 60 % (20-40); MONOCYTE 3 % (0-10); NEUTROPHIL 36 % (50-75); NUCLEATED RED BLOOD CELL 1 % (0-0); TOTAL CELLS COUNTED 100
[2018-06-09 06:22] LABS: ANISOCYTOSIS MARKED; PLATELET ESTIMATE DECREASED (NORMAL); POLYCHROMIC MODERATE; TEARDROP CELLS SLIGHT
[2018-06-09 06:23] LABS: LARGE PLATELETS PRESENT
[2018-06-09 06:24] LABS: MICROCYTOSIS SLIGHT; SCHISTOCYTES SLIGHT
--- NOTE | 2018-06-09 06:54 | CP.PCM.PN ---
Subjective - Date & Time of Evaluation Date of Evaluation: 06/09/18 Time of Evaluation: 07:05 - Subjective Subjective: PGY-4 GI Fellow Prog Note Pt lying in bed when seen this AM. States she feel much better after blood transfusions. Denied fever, abd pain, SOB. 5 point ROS negative other than stated above Objective - Vital Signs/Intake and Output Vital Signs (last 24 hours): Temp Pulse Resp BP Pulse Ox 98.9 F 87 20 112/68 98 06/09/18 00:13 06/09/18 00:13 06/09/18 00:13 06/09/18 00:13 06/08/18 23:49 Intake and Output: 06/08/18 06/09/18 18:59 06:59 Intake Total 0 1713 Balance 0 1713 - Medications Medications: Current Medications Acetaminophen (Tylenol 325mg Tab) 650 mg PO Q4H PRN PRN Reason: Pain, moderate (4-7) Albuterol/Ipratropium (Duoneb 3 Mg/0.5 Mg (3 Ml) Ud) 3 ml INH RQ2 PRN PRN Reason: Shortness of Breath Folic Acid (Folic Acid) 1 mg PO BID [facility] Last Admin: 06/08/18 17:46 Dose: 1 mg Sodium Chloride (Sodium Chloride 0.9%) 1,000 mls @ 100 mls/hr IV .Q10H [facility] Last Admin: 06/09/18 01:29 Dose: 100 mls/hr - Labs Labs: 06/09/18 04:32 06/09/18 04:32 PT 12.4 SECONDS (9.7-12.2) H 06/09/18 04:32 INR 1.1 06/09/18 04:32 - Constitutional Appears: Non-toxic, No Acute Distress - Head Exam Head Exam: ATRAUMATIC, NORMAL INSPECTION - Eye Exam Eye Exam: EOMI, Scleral icterus. absent: Conjunctival injection - Respiratory Exam Respiratory Exam: NORMAL BREATHING PATTERN. absent: Accessory Muscle Use, Respiratory Distress - Cardiovascular Exam Cardiovascular Exam: REGULAR RHYTHM, RRR - GI/Abdominal Exam GI & Abdominal Exam: Soft, Normal Bowel Sounds. absent: Bruit, Distended, Firm , Guarding, Rigid, Tenderness, Hernia, Pulsatile Mass, Rebound - Neurological Exam Neurological Exam: Alert, Awake Additional comments: No asterixis - Skin Skin Exam: Warm (+jaundice) Assessment and Plan - Assessment and Plan (Free Text) Assessment: 57 yo Hisp Female with COPD presenting with jaundice and fatigue. # Acute Macrocytic Anemia: Hgb 4.7, MCV 113 with elevated RDW of 29. Brown stool on ED exam and occult negative; therefore, GI source of bleeding unlikely. Given anemia and jaundice concerning for possible hemolytic process with +fibrin degradation and elevated D dimer. # Jaundice, elevate bilirubin, elevated transaminases: Bili 2.2, AST 118, ALT 55. Could be related to hemolytic process again. Transaminases in EtOH pattern though patient reports sobriety for years. Painless jaundice always raises concern for malignancy, though somewhat reassuringly Alk Phos is not elevated. AST, ALT not elevated to the degree of acetaminophen OD, but should r /u given reports of taking recently. Plan: - F/u Abd US, CT to further guide plan - Possible EGD today - Check Viral Hepatitis, INR, APAP lvl, TSH - Daily CBC, CMP - Agree with hemolytic w/u, consider Hematology consult Thanks you for the consult. Will cont to follow. Pt seen and examined with Dr. Hoffman
--- NOTE | 2018-06-09 07:26 | CP.PCM.PN ---
Subjective - Date & Time of Evaluation Date of Evaluation: 06/09/18 Time of Evaluation: 11:00 - Subjective Subjective: Pt seen and examined at bedside. The patient is feeling much better after the transfusion, denies weakness, SOB, CP N/V, dysuria. Objective - Vital Signs/Intake and Output Vital Signs (last 24 hours): Temp Pulse Resp BP Pulse Ox 98.9 F 87 20 112/68 98 06/09/18 00:13 06/09/18 00:13 06/09/18 00:13 06/09/18 00:13 06/08/18 23:49 Intake and Output: 06/09/18 06/09/18 06:59 18:59 Intake Total 1713 Balance 1713 - Medications Medications: Current Medications Acetaminophen (Tylenol 325mg Tab) 650 mg PO Q4H PRN PRN Reason: Pain, moderate (4-7) Albuterol/Ipratropium (Duoneb 3 Mg/0.5 Mg (3 Ml) Ud) 3 ml INH RQ2 PRN PRN Reason: Shortness of Breath Folic Acid (Folic Acid) 1 mg PO BID [facility] Last Admin: 06/08/18 17:46 Dose: 1 mg Sodium Chloride (Sodium Chloride 0.9%) 1,000 mls @ 100 mls/hr IV .Q10H [facility] Last Admin: 06/09/18 01:29 Dose: 100 mls/hr - Labs Labs: 06/09/18 04:32 06/09/18 04:32 PT 12.4 SECONDS (9.7-12.2) H 06/09/18 04:32 INR 1.1 06/09/18 04:32 - Constitutional Appears: Well, No Acute Distress - Head Exam Head Exam: ATRAUMATIC, NORMAL INSPECTION - Eye Exam Eye Exam: EOMI. absent: Periorbital swelling (pale conjunctiva), Scleral icterus - ENT Exam ENT Exam: Mucous Membranes Moist - Neck Exam Neck Exam: absent: Tenderness, Thyromegaly - Respiratory Exam Respiratory Exam: Clear to Ausculation Bilateral, NORMAL BREATHING PATTERN. absent: Accessory Muscle Use, Rales, Stridor - Cardiovascular Exam Cardiovascular Exam: RRR, +S1, +S2. absent: Murmur - GI/Abdominal Exam GI & Abdominal Exam: Soft, Normal Bowel Sounds. absent: Distended, Tenderness - Extremities Exam Extremities Exam: absent: Joint Swelling, Pedal Edema, Tenderness Additional comments: palmar pallor resolving from yesterday status - Neurological Exam Neurological Exam: Alert, Awake, CN II-XII Intact, Oriented x3 Neuro motor strength exam: Left Upper Extremity: 5, Right Upper Extremity: 5, Left Lower Extremity: 5, Right Lower Extremity: 5 - Psychiatric Exam Psychiatric exam: Normal Affect, Normal Mood - Skin Skin Exam: Dry, Intact, Pallor, Warm Assessment and Plan - Assessment and Plan (Free Text) Assessment: 57yo female with a PMH of COPD admitted with 1 month history of hematuria and increased frequency and 2 week history of vaginal discomfort, fevers, night sweats, chills, SOB, severe symptomatic anemia, pancytopenia, labs c/w hemolytic anemia. Plan: Anemia -Pt given 2 units of PRBCs starting at 4pm 06/08/2018 -Dr Harley (hematology) consulted: recommendations appreciated Beverly negative, etiologies include other autoimmune causes- will check for cryoglobulinemia, cold aggliutinin disease, PNH, lupus and will need bone marrow testing if all of the above negative. Also found to have an incidental finding of a right ovarian cyst/ abscess, will get ID, Youth Development Specialist input. Her labs also revel low Vitamin B12 level, will replace B12 and folic acid, will also order ferritin levels -Dr Hoffman (GI) consulted plan: - Check RUQ US, f/u CT to further guide plan - Fractionate Bilirubin - Check Viral Hepatitis, INR, APAP lvl, TSH - Daily CBC, CMP - Agree with hemolytic w/u, consider Hematology consult -Hgb 4.3, D-Dimer 1833, Fibrin degr +, Likely hemolytic -Haptoglobin 20 and LDH 36173 Thrombocytopenia -Platelet count 104 -hemolysis likely process due to +fibrin, D-dimer, Bili 2.2, -Hematology consulted -AST 97, ALT 44 slightly elevated, trending down -GI consulted: f/u abdominal ultrasound -fatty liver, possible infectious process -CT abd shows right adnexal fluid collection, -F/u transvag u/s -will transfuse platelets if drops below 90 Macrocytosis -MCV 97 trending down -RDW of 29. -Hgb up to 7.4 from 4.3 -Brown stool on ED exam and occult negative; therefore, GI source of bleeding unlikely. -confirmed hemolysis with +fibrin degradation and elevated D dimer, LDH and Haptoglobin findings. Coccygeal Pain -Pelvic CT reulst appreciated above -R/o mets, infectious process -Tylenol PRN 650mg limit of 2g daily Shortness of Breath resolved Hx of COPD - no acute exacerbation -on home nebulizer PRN -can start duonebs PRN disposition: Pt received 2 units of PRBCs, pt improved symptoms, hematology consulted, likely hemolytic process Reji Womack PGY1
--- NOTE | 2018-06-09 10:39 | CT ---
Date of service: 06/08/2018 PROCEDURE: CT Abdomen and Pelvis with contrast HISTORY: rule out pyelo nephritis COMPARISON: None. TECHNIQUE: Contrast dose: 100 cc Visipaque 320 Radiation dose: Total exam DLP = 229.20 mGy-cm. This CT exam was performed using one or more of the following dose reduction techniques: Automated exposure control, adjustment of the mA and/or kV according to patient size, and/or use of iterative reconstruction technique. FINDINGS: LOWER THORAX: Minimal linear scar/ atelectasis in the lingular segment of the left upper lobe. LIVER: Unremarkable. No gross lesion or ductal dilatation. GALLBLADDER AND BILE DUCTS: Unremarkable. PANCREAS: Unremarkable. No gross lesion or ductal dilatation. SPLEEN: Unremarkable. ADRENALS: Unremarkable. No mass. KIDNEYS AND URETERS: Unremarkable. No hydronephrosis. No solid mass. VASCULATURE: Unremarkable. No aortic aneurysm. BOWEL: Unremarkable. No obstruction. No gross mural thickening. APPENDIX: Normal appendix. PERITONEUM: Unremarkable. No free fluid. No free air. LYMPH NODES: Unremarkable. No enlarged lymph nodes. BLADDER: Nondistended REPRODUCTIVE: Unremarkable uterus. There is a fluid collection posterior to the uterus, likely right adnexal, measuring 3.5 x 5.9 by 3.7 cm. Likely ovarian. Rule out tubo-ovarian abscess. Rule out ovarian cyst or cystic mass. Recommend correlation with pelvic ultrasound. BONES: No acute fracture. OTHER FINDINGS: None. IMPRESSION: Right adnexal fluid collection, 5.9 cm greatest dimension. Recommend correlation with pelvic ultrasound examination cleaning transvaginal examination. No evidence of pyelonephritis. No evidence of urinary tract obstruction. No urinary calculus. The preliminary findings for this examination were reported by Opez at 8:47 p.m. on 06/08/2018. There is discordance of this report with the preliminary findings. There is no evidence of renal calculus.
[2018-06-09] MEDS ORDERED: Propofol 10 mg/ml Inj (20 ML) ONE ×2 (10:41→11:17)
--- NOTE | 2018-06-09 11:13 | US ---
Date of service: 06/08/2018 HISTORY: Elevated AST, ALT, Bilirubin COMPARISON: None. TECHNIQUE: Sonographic evaluation of the abdomen. FINDINGS: LIVER: Measures 15.9 cm. There is diffuse increased echogenicity of the liver parenchyma. No mass. No intrahepatic bile duct dilatation. GALLBLADDER: There are no gallstones, wall thickening or pericholecystic fluid. The sonographic Love's sign is negative. COMMON BILE DUCT: Measures 5.0 mm. No stones. No dilatation. PANCREAS: Normal in size and echotexture. No mass. No ductal dilatation. RIGHT KIDNEY: Measures 8.8cm. Normal echogenicity. No calculus, mass, or hydronephrosis. LEFT KIDNEY: Measures 10.5cm. Normal echogenicity. No calculus, mass, or hydronephrosis. SPLEEN: Normal in size and contour. No mass. AORTA: No aneurysmal dilatation. IVC: Unremarkable. OTHER FINDINGS: None. IMPRESSION: Diffuse increased echogenicity in the liver may reflect hepatic steatosis however parenchymal infectious/ inflammatory etiologies cannot be entirely excluded. Clinical and laboratory correlation is advised. No cholelithiasis or biliary dilatation.
--- NOTE | 2018-06-09 12:17 | CP.PCM.PN ---
Subjective - Date & Time of Evaluation Date of Evaluation: 06/09/18 Time of Evaluation: 12:10 - Subjective Subjective: Patient seen and examined, no acute events overnight. She is seen resting in bed comfortably. She denies abdominal pain, nausea, vomiting, fever/chills, rectal bleeding. s/p EGD today showing gastritis and distal esophageal nodule. Objective - Vital Signs/Intake and Output Vital Signs (last 24 hours): Temp Pulse Resp BP Pulse Ox 97.7 F 79 18 93/51 L 100 06/09/18 11:30 06/09/18 11:45 06/09/18 11:45 06/09/18 11:45 06/09/18 11:45 Intake and Output: 06/09/18 06/09/18 06:59 18:59 Intake Total 1713 100 Balance 1713 100 - Medications Medications: Current Medications Acetaminophen (Tylenol 325mg Tab) 650 mg PO Q4H PRN PRN Reason: Pain, moderate (4-7) Albuterol/Ipratropium (Duoneb 3 Mg/0.5 Mg (3 Ml) Ud) 3 ml INH RQ2 PRN PRN Reason: Shortness of Breath Folic Acid (Folic Acid) 1 mg PO BID [facility] Last Admin: 06/09/18 09:08 Dose: 1 mg Sodium Chloride (Sodium Chloride 0.9%) 1,000 mls @ 100 mls/hr IV .Q10H [facility] Last Admin: 06/09/18 01:29 Dose: 100 mls/hr - Labs Labs: 06/09/18 04:32 06/09/18 04:32 PT 12.4 SECONDS (9.7-12.2) H 06/09/18 04:32 INR 1.1 06/09/18 04:32 Assessment and Plan - Assessment and Plan (Free Text) Assessment: Anemia s/p EGD today showing gastritis, distal esophageal nodule CT imaging reviewed by me showing R adnexal fluid collection, no lymphadenopathy or GI abnormalities noted Plan: - Diet as tolerated - Follow up EGD biopsy results - LFTs trending down, continue to monitor. Viral hepatitis panel negative. - Follow up hematology recommendations regarding anemia workup of hemolysis, ? autoimmune - No further planned GI intervention, will sign off case. Patient would benefit from elective outpatient colonoscopy following resolution of acute issues. Please reconsult as necessary, thank you.
--- NOTE | 2018-06-09 18:48 | CP.PCM.PN ---
Subjective - Date & Time of Evaluation Date of Evaluation: 06/09/18 Time of Evaluation: 18:45 - Subjective Subjective: The patient is feeling much better after the transfusion, says she is not SOB any more. The patient gives a history of feeling weak, burning and discolored urine for around 4 months, denies travel, no personal or family history of anemia. The family does notice weight loss, drinking excessive carrot juice for the past couple months. Objective - Vital Signs/Intake and Output Vital Signs (last 24 hours): Temp Pulse Resp BP Pulse Ox 99 F 84 20 109/72 100 06/09/18 15:51 06/09/18 16:11 06/09/18 15:51 06/09/18 15:51 06/09/18 15:51 Intake and Output: 06/09/18 06/09/18 06:59 18:59 Intake Total 1713 1430 Balance 1713 1430 - Medications Medications: Current Medications Acetaminophen (Tylenol 325mg Tab) 650 mg PO Q4H PRN PRN Reason: Pain, moderate (4-7) Albuterol/Ipratropium (Duoneb 3 Mg/0.5 Mg (3 Ml) Ud) 3 ml INH RQ2 PRN PRN Reason: Shortness of Breath Cyanocobalamin (Vitamin B12 1000 Mcg/Ml Inj) 1,000 mcg SC DAILY [facility] Last Admin: 06/09/18 17:40 Dose: 1,000 mcg Folic Acid (Folic Acid) 1 mg PO BID [facility] Last Admin: 06/09/18 17:40 Dose: 1 mg Sodium Chloride (Sodium Chloride 0.9%) 1,000 mls @ 100 mls/hr IV .Q10H [facility] Last Admin: 06/09/18 14:17 Dose: 100 mls/hr - Labs Labs: 06/09/18 04:32 06/09/18 04:32 PT 12.4 SECONDS (9.7-12.2) H 06/09/18 04:32 INR 1.1 06/09/18 04:32 Assessment and Plan (1) Pancytopenia Assessment & Plan: 57 yo woman with severe symptomatic anemia, pancytopenia, labs c/w hemolytic anemia, Beverly negative, etiologies include other autoimmune causes- will check for cryoglobulinemia, cold aggliutinin disease, PNH, lupus and will need bone marrow testing if all of the above negative. Also found to have an incidental finding of a right ovarian cyst/ abscess, will get ID, Purchasing Administrator input. Her labs also revel low Vitamin B12 level, will replace B12 and folic acid, will also order ferritin levels Status: Acute
--- NOTE | 2018-06-09 19:23 | CP.PCM.PN ---
Subjective - Date & Time of Evaluation Date of Evaluation: 06/09/18 Time of Evaluation: 19:20 - Subjective Subjective: The patient continues to have chills, despite being on broad spectrum antibiotics. Case discussed with ID and PMD, for possible JOSELUIS next week, port cultures pending, will likely need removal. Objective - Vital Signs/Intake and Output Vital Signs (last 24 hours): Temp Pulse Resp BP Pulse Ox 99 F 84 20 109/72 100 06/09/18 15:51 06/09/18 16:11 06/09/18 15:51 06/09/18 15:51 06/09/18 15:51 Intake and Output: 06/09/18 06/10/18 18:59 06:59 Intake Total 1430 Balance 1430 - Medications Medications: Current Medications Acetaminophen (Tylenol 325mg Tab) 650 mg PO Q4H PRN PRN Reason: Pain, moderate (4-7) Albuterol/Ipratropium (Duoneb 3 Mg/0.5 Mg (3 Ml) Ud) 3 ml INH RQ2 PRN PRN Reason: Shortness of Breath Cyanocobalamin (Vitamin B12 1000 Mcg/Ml Inj) 1,000 mcg SC DAILY [facility] Last Admin: 06/09/18 17:40 Dose: 1,000 mcg Folic Acid (Folic Acid) 1 mg PO BID [facility] Last Admin: 06/09/18 17:40 Dose: 1 mg Sodium Chloride (Sodium Chloride 0.9%) 1,000 mls @ 100 mls/hr IV .Q10H [facility] Last Admin: 06/09/18 14:17 Dose: 100 mls/hr - Labs Labs: 06/09/18 04:32 06/09/18 04:32 PT 12.4 SECONDS (9.7-12.2) H 06/09/18 04:32 INR 1.1 06/09/18 04:32 Assessment and Plan (1) Pancytopenia Status: Acute
--- NOTE | 2018-06-09 20:52 | CARD ---
APPROVED REPORT Date of service: 06/08/2018 EKG Measurement Heart [id number] <Conclusion> Sinus tachycardia Lateral ST depression, consider ischemia. Abnormal ECG
[2018-06-10] MEDS: Sodium Chloride 0.9% 1,000 ML IV SCH ×2 (01:08→19:00)
[2018-06-10 08:43] LABS: BASO % 0.3 % (0.0-2.0); EOS # 0.1 K/uL (0.0-0.7); EOS % 3.6 % (0.0-4.0); HEMOGLOBIN 7.8 g/dL (11.0-16.0); LYMPH % 52.9 % (20.0-40.0); MEAN CELL VOLUME 97.5 fL (81.0-99.0); MEAN CORPUSCULAR HEMOGLOBIN 35.2 pg (27.0-31.0); MEAN CORPUSCULAR HGB CONC 36.1 g/dL (33.0-37.0); MEAN PLATELET VOLUME 8.6 fL (7.2-11.7); MONO # 0.1 K/uL (0.0-0.8); NEUT # 1.5 K/uL (1.8-7.0); NEUT % 40.2 % (50.0-75.0); NRBC % 0.2 % (0.0-2.0); RBC 2.21 Mil/uL (3.80-5.20); RED CELL DISTRIBUTION WIDTH 26.4 % (11.5-14.5); WHITE BLOOD COUNT 3.8 K/uL (4.8-10.8)
[2018-06-10 09:02] LABS: ALB/GLOB RATIO 1.8 (1.0-2.1); ALBUMIN 4.1 g/dL (3.5-5.0); ALT/SGPT 44 U/L (9-52); AST/SGOT 86 U/L (14-36); BLOOD UREA NITROGEN 9 mg/dL (7-17); CALCIUM 8.6 mg/dl (8.6-10.4); GFR AFRICAN-AMERICAN > 60; GFR NON-AFRICAN AMERICAN > 60
--- NOTE | 2018-06-10 11:04 | CP.PCM.PN ---
<Lizzette Oneal - Last Filed: 06/10/18 16:04> Subjective - Date & Time of Evaluation Date of Evaluation: 06/10/18 Time of Evaluation: 07:00 - Subjective Subjective: PGY2- Progress Note for Dr. Colmenares Patient seen and examined at bedside and in no acute distress. Patient says she is feeling much better. Patient says she is having no pain with urination and her urine has returned to a normal yellow color. Patient denies any headache, dizziness, shortness of breath, chest pain, abdominal pain, nausea, vomiting, constipation, or diarrhea. Objective - Vital Signs/Intake and Output Vital Signs (last 24 hours): Temp Pulse Resp BP Pulse Ox 98.4 F 89 20 111/68 98 06/10/18 07:42 06/10/18 07:44 06/10/18 07:42 06/10/18 07:42 06/10/18 07:42 Intake and Output: 06/10/18 06/10/18 06:59 18:59 Intake Total 1700 Balance 1700 - Medications Medications: Current Medications Acetaminophen (Tylenol 325mg Tab) 650 mg PO Q4H PRN PRN Reason: Pain, moderate (4-7) Albuterol/Ipratropium (Duoneb 3 Mg/0.5 Mg (3 Ml) Ud) 3 ml INH RQ2 PRN PRN Reason: Shortness of Breath Cyanocobalamin (Vitamin B12 1000 Mcg/Ml Inj) 1,000 mcg SC DAILY [facility] Last Admin: 06/10/18 10:06 Dose: 1,000 mcg Folic Acid (Folic Acid) 1 mg PO BID [facility] Last Admin: 06/10/18 10:05 Dose: 1 mg Sodium Chloride (Sodium Chloride 0.9%) 1,000 mls @ 100 mls/hr IV .Q10H [facility] Last Admin: 06/09/18 14:17 Dose: 100 mls/hr - Labs Labs: 06/10/18 08:27 06/10/18 08:27 PT 12.4 SECONDS (9.7-12.2) H 06/09/18 04:32 INR 1.1 06/09/18 04:32 - Additional Findings Additional findings: - Constitutional Appears: Well, No Acute Distress - Head Exam Head Exam: ATRAUMATIC, NORMAL INSPECTION - Eye Exam Eye Exam: EOMI. absent: Periorbital swelling (pale conjunctiva), Scleral icterus - ENT Exam ENT Exam: Mucous Membranes Moist - Neck Exam Neck Exam: absent: Tenderness, Thyromegaly - Respiratory Exam Respiratory Exam: Clear to Ausculation Bilateral, NORMAL BREATHING PATTERN. absent: Accessory Muscle Use, Rales, Stridor - Cardiovascular Exam Cardiovascular Exam: RRR, +S1, +S2. absent: Murmur - GI/Abdominal Exam GI & Abdominal Exam: Soft, Normal Bowel Sounds. absent: Distended, Tenderness - Extremities Exam Extremities Exam: absent: Joint Swelling, Pedal Edema, Tenderness Additional comments: palmar pallor resolving from yesterday status - Neurological Exam Neurological Exam: Alert, Awake, CN II-XII Intact, Oriented x3 Neuro motor strength exam: Left Upper Extremity: 5, Right Upper Extremity: 5, Left Lower Extremity: 5, Right Lower Extremity: 5 - Psychiatric Exam Psychiatric exam: Normal Affect, Normal Mood - Skin Skin Exam: Dry, Intact, Pallor, Warm Assessment and Plan - Assessment and Plan (Free Text) Assessment: Macrocytic Anemia -Pt given 2 units of PRBCs starting at 4pm 06/08/2018 -MCV 97.5 trending down -RDW of 26.4 -Hgb up to 7.8 from 7.4 from 4.3 -Brown stool on ED exam and occult negative; therefore, GI source of bleeding unlikely. -confirmed hemolysis with +fibrin degradation and elevated D dimer, LDH and Haptoglobin findings. -Dr Harley (hematology) consulted: recommendations appreciated Beverly negative, etiologies include other autoimmune causes- will check for cryoglobulinemia, cold aggliutinin disease, PNH, lupus and will need bone marrow testing if all of the above negative. Also found to have an incidental finding of a right ovarian cyst/ abscess, will get ID, Carpentry Teacher input. OBGYN consulted, Dr. Villalobos, help appreciated CA 19-9: 6.2 CA 125: 9.4 HIV and Hep panel negative -Dr Hoffman (GI) consulted plan: - Check RUQ US, f/u CT to further guide plan - Fractionate Bilirubin - Check Viral Hepatitis, INR, APAP lvl, TSH - Daily CBC, CMP - Agree with hemolytic w/u, consider Hematology consult -Hgb 4.3, D-Dimer 1833, Fibrin degr +, Likely hemolytic -Haptoglobin 20 and LDH [id number] Thrombocytopenia -Platelet count 85 -hemolysis likely process due to +fibrin, D-dimer, Bili 2.2, -Hematology consulted -AST 97, ALT 44 slightly elevated, trending down -GI consulted -abdominal ultrasound: diffuse increased echogenicity in the liver may reflect hepatic steatosis however parenchymal infectious/ inflammatory etiologies cannot be entirely excluded. no cholelithiasis or biliary dilatation. -CT abd shows right adnexal fluid collection, 5.9 cm greatest dimension. Recommend correlation with pelvic u/s. no pyelonephritis, no urinary tract obstruction. no urinary calculus -F/u transvag u/s Coccygeal Pain -Pelvic CT result appreciated above -R/o mets, infectious process -Tylenol PRN 650mg limit of 2g daily Vitamin B 12 deficiency B12: 267 Vit B12 1,0000mcg sc daily Folic Acid 1mg po BID Hx of COPD - no acute exacerbation -duonebs q2 prn Prophylaxis scds <Ramakrishna Colmenares - Last Filed: 06/10/18 21:02> Objective - Vital Signs/Intake and Output Vital Signs (last 24 hours): Temp Pulse Resp BP Pulse Ox 98.7 F 93 H 20 109/62 99 06/10/18 16:06 06/10/18 16:06 06/10/18 16:06 06/10/18 16:06 06/10/18 16:06 - Medications Medications: Current Medications Acetaminophen (Tylenol 325mg Tab) 650 mg PO Q4H PRN PRN Reason: Pain, moderate (4-7) Albuterol/Ipratropium (Duoneb 3 Mg/0.5 Mg (3 Ml) Ud) 3 ml INH RQ2 PRN PRN Reason: Shortness of Breath Cyanocobalamin (Vitamin B12 1000 Mcg/Ml Inj) 1,000 mcg SC DAILY [facility] Last Admin: 06/10/18 10:06 Dose: 1,000 mcg Folic Acid (Folic Acid) 1 mg PO BID [facility] Last Admin: 06/10/18 17:57 Dose: 1 mg Sodium Chloride (Sodium Chloride 0.9%) 1,000 mls @ 100 mls/hr IV .Q10H [facility] Last Admin: 06/09/18 14:17 Dose: 100 mls/hr - Labs Labs: 06/10/18 08:27 06/10/18 08:27 PT 12.4 SECONDS (9.7-12.2) H 06/09/18 04:32 INR 1.1 06/09/18 04:32 Attending/Attestation - Attestation I have personally seen and examined this patient.: Yes I have fully participated in the care of the patient.: Yes I have reviewed all pertinent clinical information, including history, physical exam and plan: Yes Notes (Text): 06/10/18 20:51 Patient was seen and examined at 10:00 AM 06/10/18 565 A Also on ROS: NO SOB/Cough NO burning/pain with urination NO urethral/vaginal discharge Moving her bowels normally NO N/V and tolerating her meals NO chest pain/palpitations NO other complaints upon FULL ROS HEENT, Cardio, Respiratory, GI, Ext, CN II through XII exam were unremarkable Plan: F/U Hemolytic Anemia workup ordered by Hematology Dr. Harley. Patient will need to be tested for G6PD once this current acute process stabilizes. She has received 2 units PRBC and the HgB/Hct is holding steady and she is currently asymptomatic. She will need outpatient Colonoscopy. F/U official Pelvis U/S report. Spoke with rehabilitation attendant Dr. Villalobos who spoke with radiologist and Right Adenexal 5.9 cm fluid collection seen on CT Abdomen/ Pelvis is a ovarian cyst (patient has a history of this in the past). Therefore will hold off on starting any antibiotics for now as the regimens for ovarian abscess includes antibiotics (such as clindamycin, cefoxitin, cefoxetin, doxycycline, gentamicin) that can cause either pancytopenia or hemolytic anemia. ID Dr. Yaakov Bledsoe is on board. F/U Vaginal culture performed by rehabilitation attendant Dr. Villalobos. She has not seen an outpatient rehabilitation attendant for at least 7 years as per my conversation with her. Dr. Villalobos has provided patient with information for outpatient rehabilitation attendant Dr. Colmenares and patient will need PAP Smear performed upon discharge. Is the Hemolytic Anemia due to occult CA?: F/U CA 125 and CA 19-9. F/U Blood Culture Urine Culture shows NO Growth F/U EGD biopsy from 06/09/18 Ramakrishna Colmenares D.O.
--- NOTE | 2018-06-10 14:06 | CP.PCM.CON ---
History of Present Illness - History of Present Illness History of Present Illness: INFECTIOUS DISEASE CONSULT; HPI; 57-year-old pleasant female with history of COPD who presented to [facility] on 06/08/18 with complains of urinary frequency and low-grade fevers for the past month. Patient also states noticed change in color and odor of her urine from yellow to reddish. Patient states she has been taking Tylenol 250 mg twice a day for the past 2 weeks with a fever and continued to work. 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 Patient also states she has been feeling weak and tired and as per family members has been sleeping more. Patient also got worried when she noticed her skin getting more jaundiced and yellow. So she decided to come to the ER. Patient denies any dysuria or hematuria at present. Denies any abdominal pains , nausea, vomiting, or diarrhea or constipation. On admission she was found to to be pancytopenic with a hemoglobin of 4.3. Patient also was noted to have jaundice with elevated liver enzymes and bilirubin of 2.8. Patient undergoing anemia workup and GI workup as per chart. CT of the abdomen and pelvis with IV contrast showed right adnexal fluid collection posterior to the uterus of 3.7 x 5.9 x 3.5 cm. A question of tubo- ovarian abscess was raised by radiologist. INFECTIOUS DISEASE CONSULT THEREFORE REQUESTED BY AMPOULE FILLER ONCOLOGIST FOR EVALUATION OF ABNORMAL CT OF THE ABDOMEN AND PELVIS WITH INCIDENTAL FINDING OF RIGHT ADNEXAL COLLECTION. ?TOA. PMHx: COPD SurgHx: Ovarian cyts Meds: Cipro? Acetaminophen FamHx: Denies h/o GI or Liver disorders. DENIES HISTORY OF CANCER IN THE FAMILY. SocHx: Quit tobacco and EtOH 7 years ago, 18 pack year smoker, denied illicits All: PCN - rash and swelling Review of Systems - Constitutional Constitutional: Fatigue, Malaise, Weight Loss, Weakness. absent: Chills, Fever , Night Sweats - EENT Nose/Mouth/Throat: absent: Mouth Lesions, Mouth Pain - Breasts Breasts: As Per HPI. absent: Pain, Nipple Discharge, Skin Changes - Cardiovascular Cardiovascular: absent: Chest Pain, Chest Pain at Rest - Respiratory Respiratory: Dyspnea on Exertion. absent: Cough, Hemoptysis - Gastrointestinal Gastrointestinal: absent: Abdominal Pain, Constipation, Nausea, Vomiting - Genitourinary Genitourinary: Urinary Frequency. absent: Dysuria, Hematuria, Pyuria - Reproductive: Female Reproductive:Female: Post Menopausal - Integumentary Integumentary: absent: Rash - Hematologic/Lymphatic Hematologic: As Per HPI. absent: Easy Bruising, Lymphadenopathy Past Patient History - Past Medical History & Family History Past Medical History?: Yes - Past Social History Smoking Status: Former Smoker - PULMONARY Hx Chronic Obstructive Pulmonary Disease (COPD): Yes - MUSCULOSKELETAL/RHEUMATOLOGICAL Hx Falls: No - GENITOURINARY/GYNECOLOGICAL Other/Comment: Bilateral Laproscopic ovarian cyst removal - PSYCHIATRIC Hx Substance Use: No - SURGICAL HISTORY Hx Surgeries: Yes Other/Comment: cyst removal in ovary - ANESTHESIA Hx Anesthesia: Yes Hx Anesthesia Reactions: No Hx Malignant Hyperthermia: No Has any member of the family had a problem w/ anesthesia?: No Meds Allergies/Adverse Reactions: Allergies Allergy/AdvReac Type Severity Reaction Status Date / Time Penicillins Allergy Verified 06/08/18 10:37 - Medications Medications: Current Medications Acetaminophen (Tylenol 325mg Tab) 650 mg PO Q4H PRN PRN Reason: Pain, moderate (4-7) Albuterol/Ipratropium (Duoneb 3 Mg/0.5 Mg (3 Ml) Ud) 3 ml INH RQ2 PRN PRN Reason: Shortness of Breath Cyanocobalamin (Vitamin B12 1000 Mcg/Ml Inj) 1,000 mcg SC DAILY [facility] Last Admin: 06/10/18 10:06 Dose: 1,000 mcg Folic Acid (Folic Acid) 1 mg PO BID [facility] Last Admin: 06/10/18 10:05 Dose: 1 mg Sodium Chloride (Sodium Chloride 0.9%) 1,000 mls @ 100 mls/hr IV .Q10H [facility] Last Admin: 06/09/18 14:17 Dose: 100 mls/hr Physical Exam - Constitutional Appears: No Acute Distress - Head Exam Head Exam: NORMAL INSPECTION - Eye Exam Eye Exam: EOMI, PERRL, Scleral icterus - ENT Exam ENT Exam: Normal Oropharynx - Neck Exam Neck exam: Positive for: Normal Inspection - Respiratory Exam Respiratory Exam: Clear to Auscultation Bilateral - Cardiovascular Exam Cardiovascular Exam: Tachycardia, REGULAR RHYTHM, +S1, +S2 - GI/Abdominal Exam GI & Abdominal Exam: Normal Bowel Sounds, Soft. absent: Organomegaly, Tenderness - Rectal Exam Rectal Exam: Deferred - Extremities Exam Extremities exam: Positive for: normal capillary refill, pedal pulses present. Negative for: calf tenderness, pedal edema - Neurological Exam Neurological exam: Alert, CN II-XII Intact, Normal Gait, Oriented x3, Reflexes Normal - Psychiatric Exam Psychiatric exam: Normal Mood - Skin Skin Exam: Pallor, Warm Results - Vital Signs Recent Vital Signs: Last Vital Signs Temp 98.4 F 06/10/18 07:42 Pulse 89 06/10/18 07:44 Resp 20 06/10/18 07:42 BP 111/68 06/10/18 07:42 Pulse Ox 98 06/10/18 07:42 - Labs Result Diagrams: 06/11/18 08:07 06/11/18 08:07 Labs: Laboratory Results - last 24 hr 06/10/18 06/10/18 06/10/18 08:27 08:27 08:27 WBC 3.8 L RBC 2.21 L Hgb 7.8 L Hct 21.5 L MCV 97.5 MCH 35.2 H MCHC 36.1 RDW 26.4 H Plt Count 85 L MPV 8.6 Neut % (Auto) 40.2 L Lymph % (Auto) 52.9 H [place] % (Auto) 3.0 Eos % (Auto) 3.6 Baso % (Auto) 0.3 Neut # (Auto) 1.5 L Lymph # (Auto) 2.0 [place] # (Auto) 0.1 Eos # (Auto) 0.1 Baso # (Auto) 0.0 Sodium 142 Potassium 3.6 Chloride 104 Carbon Dioxide 30 Anion Gap 12 BUN 9 Creatinine 0.5 L Est GFR ( Amer) > 60 Est GFR (Non-Af Amer) > 60 Random Glucose 104 Calcium 8.6 Ferritin 143.0 Total Bilirubin 2.1 H AST 86 H ALT 44 Alkaline Phosphatase 47 Total Protein 6.4 Albumin 4.1 Globulin 2.3 Albumin/Globulin Ratio 1.8 CA 19-9 Antigen 6.2 CA 125 Antigen 9.4 HIV 1&2 Antibody Screen Negative - Imaging and Cardiology CT scan - abdomen/PELVIS Status: Report reviewed by me (SEE FULL REPORT.) Assessment & Plan (1) Anemia Status: Acute (2) Pancytopenia Status: Acute (3) Right ovarian cyst Status: Acute - Assessment and Plan (Free Text) Assessment: IMPRESSION; . RIGHT ADNEXAL FLUID COLLECTION ?OVARIAN CYST/VS CYSTIC MASS R/O OCCULT MALIGNANCY . SEVERE SYMPTOMATIC ANEMIA R/O HEMOLYTIC ANEMIA R/O AUTOIMMUNE PROCESS ?PNH . PAINLESS JAUNDICE AND ABNORMAL TRANSAMINITIS ? SECONDARY TO HEMOLYSIS VS HOGUE. . COPD BY HISTORY. . THROMBOCYTOPENIA. PLAN;; CASE DISCUSSED WITH ATTENDING DR ALLEN BERNAL ( COVERING HOSPITALIST ). HOLD OFF ANTIBIOTICS,FOR DOUBT TUBO-OVARIAN ABSCESS PATIENT NOT SYMPTOMATIC WITH PAIN OR LEUKOCYTOSIS. F/U PELVIC ULTRASOUND FOR BETTER DELINEATION OF RIGHT ADNEXAL FLUID COLLECTION. CHECK ca-125 CHECK ca 199 HIV-1 AND 2 ANTIBODIES. F/U LFTS . F/U CULTURES . GYNECOLOGY ON BOARD. ANEMIA AND HEMOLYSIS WORKUP IN PROGRESS. WILL FOLLOW WITH YOU. tHANK YOU FOR THIS INTERESTING CASE.
--- NOTE | 2018-06-10 16:06 | CP.PCM.CON ---
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 Pt admits to a thick whittish discharge that she treated herself with Monistat and got better but that feels like is re-starting with mild vaginal itching. Pt denies any pelvic or abdominal pains or discomfort. Denies urinary or bowel complaints and admits to drinking little water daily. Past Patient History - Past Medical History & Family History Past Medical History?: Yes - Past Social History Smoking Status: Former Smoker - PULMONARY Hx Chronic Obstructive Pulmonary Disease (COPD): Yes - MUSCULOSKELETAL/RHEUMATOLOGICAL Hx Falls: No - GENITOURINARY/GYNECOLOGICAL Other/Comment: Bilateral Laproscopic ovarian cyst removal - PSYCHIATRIC Hx Substance Use: No - SURGICAL HISTORY Hx Surgeries: Yes Other/Comment: cyst removal in ovary - ANESTHESIA Hx Anesthesia: Yes Hx Anesthesia Reactions: No Hx Malignant Hyperthermia: No Has any member of the family had a problem w/ anesthesia?: No Meds Home Medications: Home Medication List Medication Instructions Recorded Confirmed Type Cyanocobalamin (Vitamin B-12) 3,000 mcg SL DAILY #1 drops 06/12/18 Rx [B-12] Folic Acid 1 mg PO BID #60 tab 06/12/18 Rx Allergies/Adverse Reactions: Allergies Allergy/AdvReac Type Severity Reaction Status Date / Time Penicillins Allergy Verified 06/08/18 10:37 - Medications Medications: Current Medications Acetaminophen (Tylenol 325mg Tab) 650 mg PO Q4H PRN PRN Reason: Pain, moderate (4-7) Albuterol/Ipratropium (Duoneb 3 Mg/0.5 Mg (3 Ml) Ud) 3 ml INH RQ2 PRN PRN Reason: Shortness of Breath Cyanocobalamin (Vitamin B12 1000 Mcg/Ml Inj) 1,000 mcg SC DAILY [facility] Last Admin: 06/10/18 10:06 Dose: 1,000 mcg Folic Acid (Folic Acid) 1 mg PO BID [facility] Last Admin: 06/10/18 10:05 Dose: 1 mg Sodium Chloride (Sodium Chloride 0.9%) 1,000 mls @ 100 mls/hr IV .Q10H [facility] Last Admin: 06/09/18 14:17 Dose: 100 mls/hr Results - Vital Signs Recent Vital Signs: Last Vital Signs Temp 98.4 F 06/10/18 07:42 Pulse 89 06/10/18 07:44 Resp 20 06/10/18 07:42 BP 111/68 06/10/18 07:42 Pulse Ox 98 06/10/18 07:42 - Labs Result Diagrams: 06/12/18 07:08 06/12/18 07:08 Labs: Laboratory Results - last 24 hr 06/10/18 06/10/18 06/10/18 08:27 08:27 08:27 WBC 3.8 L RBC 2.21 L Hgb 7.8 L Hct 21.5 L MCV 97.5 MCH 35.2 H MCHC 36.1 RDW 26.4 H Plt Count 85 L MPV 8.6 Neut % (Auto) 40.2 L Lymph % (Auto) 52.9 H [place] % (Auto) 3.0 Eos % (Auto) 3.6 Baso % (Auto) 0.3 Neut # (Auto) 1.5 L Lymph # (Auto) 2.0 [place] # (Auto) 0.1 Eos # (Auto) 0.1 Baso # (Auto) 0.0 Sodium 142 Potassium 3.6 Chloride 104 Carbon Dioxide 30 Anion Gap 12 BUN 9 Creatinine 0.5 L Est GFR ( Amer) > 60 Est GFR (Non-Af Amer) > 60 Random Glucose 104 Calcium 8.6 Ferritin 143.0 Total Bilirubin 2.1 H AST 86 H ALT 44 Alkaline Phosphatase 47 Total Protein 6.4 Albumin 4.1 Globulin 2.3 Albumin/Globulin Ratio 1.8 CA 19-9 Antigen 6.2 CA 125 Antigen 9.4 HIV 1&2 Antibody Screen Negative Assessment & Plan - Assessment and Plan (Free Text) Assessment: Post Menopausal Female Sympmatic Gracy Vaginitis Right Simple Ovarian cyst, per US and Asymptomatic/Incidental finding Hx of Right simple Ovarian cyst yrs ago and had Sx Plan: Diflucan 150 mg po given GC/Chlamydia vaginal culture ordered. Vaginal culture ordered Advised patient to follow up with her [employer] as outpatient - Date & Time Date: 06/10/18 Time: 15:00
[2018-06-11 08:24] LABS: BASO % 0.3 % (0.0-2.0); EOS # 0.2 K/uL (0.0-0.7); EOS % 4.1 % (0.0-4.0); HEMOGLOBIN 7.1 g/dL (11.0-16.0); LYMPH # 2.6 K/uL (1.0-4.3); LYMPH % 56.8 % (20.0-40.0); MEAN CELL VOLUME 97.8 fL (81.0-99.0); MEAN CORPUSCULAR HEMOGLOBIN 35.5 pg (27.0-31.0); MEAN CORPUSCULAR HGB CONC 36.3 g/dL (33.0-37.0); MEAN PLATELET VOLUME 9.6 fL (7.2-11.7); MONO # 0.3 K/uL (0.0-0.8); MONO % 7.6 % (0.0-10.0); NEUT # 1.4 K/uL (1.8-7.0); NEUT % 31.2 % (50.0-75.0); NRBC % 0.7 % (0.0-2.0); RBC 2.01 Mil/uL (3.80-5.20); RED CELL DISTRIBUTION WIDTH 25.9 % (11.5-14.5); WHITE BLOOD COUNT 4.6 K/uL (4.8-10.8)
[2018-06-11 08:41] LABS: ALB/GLOB RATIO 1.6 (1.0-2.1); ALBUMIN 3.5 g/dL (3.5-5.0); ALT/SGPT 34 U/L (9-52); AST/SGOT 45 U/L (14-36); BLOOD UREA NITROGEN 9 mg/dL (7-17); CALCIUM 8.4 mg/dl (8.6-10.4); GFR AFRICAN-AMERICAN > 60; GFR NON-AFRICAN AMERICAN > 60
--- NOTE | 2018-06-11 10:06 | RAD ---
Date of service: 06/11/2018 HISTORY: shortness of breath, anemia COMPARISON: Chest radiographs 05/26/2014. FINDINGS: LUNGS: No active pulmonary disease. PLEURA: No significant pleural effusion identified, no pneumothorax apparent. CARDIOVASCULAR: Normal. OSSEOUS STRUCTURES: No significant abnormalities. VISUALIZED UPPER ABDOMEN: Normal. OTHER FINDINGS: None. IMPRESSION: No interval acute cardiopulmonary disease appreciated.
--- NOTE | 2018-06-11 11:17 | CP.PCM.PN ---
Subjective - Date & Time of Evaluation Date of Evaluation: 06/11/18 Time of Evaluation: 10:00 - Subjective Subjective: Patient was seen and examined by me. This is a very nice 57 year old female who is currently here with anemia - it appears that the etiology of this anemia is secondary to some type of hemolysis - the work up of which is still pending. When she came in she had a very very high LDH and low haptoglobin pointing to hemolysis. The urine analysis showed a lot urinenobilogen as well and there were fibrin split products too. When I saw her today, family members were at bedside and she was ok with us discussing with family present She reported that overall she feels ok now after the blood transfusion. Deneid chest pain, denied palpitations, denied shortness of breath, denied abdominal pain, she has been walking too and from bathroom ok. Also is eating well. I told the family to not bring in any beans as Hematology is doing a G6PD work up as well. Hgb is 7.1 today, decreased slighlty. Will transfuse one more unit of PRBC. Also CXRAY and procalcitin. Objective - Vital Signs/Intake and Output Vital Signs (last 24 hours): Temp Pulse Resp BP Pulse Ox 98.0 F 92 H 20 113/73 98 06/11/18 08:18 06/11/18 08:18 06/11/18 08:18 06/11/18 08:18 06/11/18 08:18 - Medications Medications: Current Medications Acetaminophen (Tylenol 325mg Tab) 650 mg PO Q4H PRN PRN Reason: Pain, moderate (4-7) Albuterol/Ipratropium (Duoneb 3 Mg/0.5 Mg (3 Ml) Ud) 3 ml INH RQ2 PRN PRN Reason: Shortness of Breath Cyanocobalamin (Vitamin B12 1000 Mcg/Ml Inj) 1,000 mcg SC DAILY [facility] Last Admin: 06/11/18 09:10 Dose: 1,000 mcg Folic Acid (Folic Acid) 1 mg PO BID [facility] Last Admin: 06/11/18 09:10 Dose: 1 mg Sodium Chloride (Sodium Chloride 0.9%) 1,000 mls @ 100 mls/hr IV .Q10H [facility] Last Admin: 06/10/18 19:00 Dose: 100 mls/hr - Labs Labs: 06/11/18 08:07 06/11/18 08:07 PT 12.4 SECONDS (9.7-12.2) H 06/09/18 04:32 INR 1.1 06/09/18 04:32 Assessment and Plan - Assessment and Plan (Free Text) Assessment: Macrocytic Anemia 06/11: Hgb was obersved to decrease to 7.1 so will transfuse one unit of PRBC and continue to monitor. She has had hemolysis for some unclear reason at this time and we are still pending a lot of the send out test by hematology oncology. At this time she remains stable and is not in any acute distress. Pt given 2 units of PRBCs starting at 4pm 06/08/2018 MCV 97.5 jacinta RDW of 26.4 On admission her Hgb was 4.3 and increased after two units. Brown stool on ED exam and occult negative; therefore, GI source of bleeding unlikely. Confirmed hemolysis with +fibrin degradation and elevated D dimer, LDH and Haptoglobin findings. -Dr Harley (hematology) consulted: recommendations appreciated [place] negative, etiologies include other autoimmune causes- will check for cryoglobulinemia, cold aggliutinin disease, PNH, lupus and will need bone marrow testing if all of the above negative. Also found to have an incidental finding of a right ovarian cyst/ abscess, will get ID, Line Rider input. OBGYN consulted, Dr. Villalobos, help appreciated CA 19-9: 6.2 CA 125: 9.4 HIV and Hep panel negative -Dr Hoffman (GI) consulted plan: - Check RUQ US, f/u CT to further guide plan - Fractionate Bilirubin - Check Viral Hepatitis, INR, APAP lvl, TSH - Daily CBC, CMP - Agree with hemolytic w/u, consider Hematology consult -Hgb 4.3, D-Dimer 1833, Fibrin degr +, Likely hemolytic -Haptoglobin 20 and LDH 36261 Thrombocytopenia 06/11: Continue to follow - she is not bleeding acutely at this time. Maybe will need a bone marrow biopsy Platelet count 85 -hemolysis likely process due to +fibrin, D-dimer, Bili 2.2, -Hematology consulted -AST 97, ALT 44 slightly elevated, trending down -GI consulted -abdominal ultrasound: diffuse increased echogenicity in the liver may reflect hepatic steatosis however parenchymal infectious/ inflammatory etiologies cannot be entirely excluded. no cholelithiasis or biliary dilatation. -CT abd shows right adnexal fluid collection, 5.9 cm greatest dimension. Recommend correlation with pelvic u/s. no pyelonephritis, no urinary tract obstruction. no urinary calculus -F/u transvag u/s Coccygeal Pain -Pelvic CT result appreciated above -R/o mets, infectious process -Tylenol PRN 650mg limit of 2g daily Vitamin B 12 deficiency B12: 267 Vit B12 1,0000mcg sc daily Folic Acid 1mg po BID Hx of COPD - no acute exacerbation -duonebs q2 prn
--- NOTE | 2018-06-11 13:35 | US ---
Date of service: 06/09/2018 HISTORY: r/o tuboovarian abscess COMPARISON: Abdomen and pelvis CT examination 06/08/2018. TECHNIQUE: Transabdominal and transvaginal pelvic ultrasound was performed with longitudinal and transverse images submitted for interpretation. FINDINGS: UTERUS: Measures 7.2 x 3.2 x 4.5 cm. Uterus is anteverted without focal myometrial mass evident. ENDOMETRIUM: Measures 4.0 mm in diameter. Unremarkable. CERVIX: No cervical abnormality identified. RIGHT OVARY: There is no soft tissue component to suggest an ovary exclusive of a moderately large cystic collection at the right adnexal compartment measuring 7.2 x 3.1 x 5.6 cm including a thin rind of soft tissue. A dominant feature in this structure is a cyst that measures approximately 5.8 x 2.9 x 4.8 cm with a small cyst measuring 0.9 x 0.7 x 0.9 cm. This does not have a specifically tubular shape and on discussion of this case with Dr. Villalobos, the consulting spool hauler, there is no elevated white blood cell count, and clinically, the patient has no right-sided pelvic pain. An acute or subacute tubo-ovarian abscess is highly unlikely in light of these clinical findings. Consider parovarian cyst, follicular cyst or other etiologies including cystadenoma or cystadenocarcinoma. No obvious ovarian torsion is appreciated with spectral arterial tracings identified within the meehan of the cyst with no definite torsion pattern appreciated grossly. Ultimately, the right ovary may not be adequately visualized. LEFT OVARY: Measures 2.3 x 1.1 x 2.3 cm. No solid mass. Normal flow. FREE FLUID: No significant free fluid noted. OTHER FINDINGS: None. IMPRESSION: 1. 7.2 x 3.1 x 5.6 cm slightly complex cystic structure is identified in the right adnexal compartment presumably representing gross enlarging the right ovary by simple cysts. Tubo-ovarian abscess is not favored given lack of clinical signs corroborating this diagnosis and this structure appears more ovoid than tubular in shape. The lack complex components also suggest lack an acute or subacute tubo-ovarian abscess. Please see discussion above. 2. The remainder the examination appears unremarkable. 3. Findings discussed with Dr. Villalobos 06/10/2018 a.m. with written down and read back verification.
[2018-06-11 23:52] VITALS: RESP 20
--- NOTE | 2018-06-12 07:05 | CP.PCM.PN ---
Subjective - Date & Time of Evaluation Date of Evaluation: 06/12/18 - Subjective Subjective: PGY-1 Luz Elena Mccollum D.O. Medicine progress note for Dr. Urena service: Objective - Vital Signs/Intake and Output Vital Signs (last 24 hours): Temp Pulse Resp BP Pulse Ox 98.1 F 79 20 108/67 100 06/11/18 23:25 06/11/18 23:30 06/11/18 23:25 06/11/18 23:25 06/11/18 23:25 - Medications Medications: Current Medications Acetaminophen (Tylenol 325mg Tab) 650 mg PO Q4H PRN PRN Reason: Pain, moderate (4-7) Albuterol/Ipratropium (Duoneb 3 Mg/0.5 Mg (3 Ml) Ud) 3 ml INH RQ2 PRN PRN Reason: Shortness of Breath Cyanocobalamin (Vitamin B12 1000 Mcg/Ml Inj) 1,000 mcg SC DAILY [facility] Stop: 06/16/18 16:30 Last Admin: 06/11/18 09:10 Dose: 1,000 mcg Folic Acid (Folic Acid) 1 mg PO BID [facility] Last Admin: 06/11/18 17:17 Dose: 1 mg Thiamine HCl (Vitamin B1 Tab) 100 mg PO DAILY [facility] - Labs Labs: 06/11/18 08:07 06/11/18 08:07 PT 12.4 SECONDS (9.7-12.2) H 06/09/18 04:32 INR 1.1 06/09/18 04:32
[2018-06-12 07:17] LABS: BASO % 0.4 % (0.0-2.0); EOS # 0.2 K/uL (0.0-0.7); LYMPH # 2.6 K/uL (1.0-4.3); LYMPH % 50.3 % (20.0-40.0); MEAN CELL VOLUME 96.4 fL (81.0-99.0); MEAN CORPUSCULAR HEMOGLOBIN 34.1 pg (27.0-31.0); MEAN CORPUSCULAR HGB CONC 35.4 g/dL (33.0-37.0); MEAN PLATELET VOLUME 9.5 fL (7.2-11.7); MONO # 0.4 K/uL (0.0-0.8); MONO % 8.5 % (0.0-10.0); NEUT # 1.9 K/uL (1.8-7.0); NEUT % 36.8 % (50.0-75.0); NRBC % 1.4 % (0.0-2.0); RBC 2.71 Mil/uL (3.80-5.20); RED CELL DISTRIBUTION WIDTH 26.3 % (11.5-14.5); WHITE BLOOD COUNT 5.3 K/uL (4.8-10.8)
[2018-06-12 07:24] LABS: HEMOGLOBIN 9.2 g/dL (11.0-16.0)
[2018-06-12 07:39] LABS: BLOOD UREA NITROGEN 10 mg/dL (7-17); GFR AFRICAN-AMERICAN > 60; GFR NON-AFRICAN AMERICAN > 60
[2018-06-12 07:40] LABS: ALT/SGPT 31 U/L (9-52); AST/SGOT 29 U/L (14-36); CALCIUM 8.7 mg/dl (8.6-10.4)
[2018-06-12 07:53] VITALS: BP 108/66; TEMP 98.4
[2018-06-12 09:03] LABS: METHYLMALONIC ACID,SERUM 2596 nmol/L (87-318)
--- NOTE | 2018-06-12 10:19 | CP.PCM.DIS ---
Provider - Provider Date of Admission: 06/08/18 12:58 Attending physician: Ramón Tovar MD Primary care physician: none Consults: hem/onc (Palathingal), ID (Rakan), OBGYN (Wilfredo), GI (Dalton) Time Spent in preparation of Discharge (in minutes): 45 Diagnosis - Discharge Diagnosis (1) Hemolysis Status: Acute Priority: High (2) Pancytopenia Status: Acute Priority: High (3) Right ovarian cyst Status: Chronic Priority: Low (4) COPD (chronic obstructive pulmonary disease) Status: Chronic Priority: Low Hospital Course - Lab Results Lab Results: Micro Results 06/09/18 21:49 Blood-Venous Blood Culture - Preliminary NO GROWTH AFTER 48 HOURS 06/09/18 21:49 Blood-Venous Blood Culture - Preliminary NO GROWTH AFTER 48 HOURS 06/08/18 14:23 Urine,Clean Catch Urine Culture - Final No Growth (<1,000 CFU/ML) 06/08/18 12:04 Urine Urine Culture - Final No Growth (<1,000 CFU/ML) Most Recent Lab Values WBC 5.3 K/uL (4.8-10.8) 06/12/18 07:08 RBC 2.71 Mil/uL (3.80-5.20) L 06/12/18 07:08 Hgb 9.2 g/dL (11.0-16.0) L D 06/12/18 07:08 Hct 26.1 % (34.0-47.0) L 06/12/18 07:08 MCV 96.4 fL (81.0-99.0) 06/12/18 07:08 MCH 34.1 pg (27.0-31.0) H 06/12/18 07:08 MCHC 35.4 g/dL (33.0-37.0) 06/12/18 07:08 RDW 26.3 % (11.5-14.5) H 06/12/18 07:08 Plt Count 80 K/uL (130-400) L 06/12/18 07:08 MPV 9.5 fL (7.2-11.7) 06/12/18 07:08 Neut % (Auto) 36.8 % (50.0-75.0) L 06/12/18 07:08 Lymph % (Auto) 50.3 % (20.0-40.0) H 06/12/18 07:08 Mills % (Auto) 8.5 % (0.0-10.0) 06/12/18 07:08 Eos % (Auto) 4.0 % (0.0-4.0) 06/12/18 07:08 Baso % (Auto) 0.4 % (0.0-2.0) 06/12/18 07:08 Neut # (Auto) 1.9 K/uL (1.8-7.0) 06/12/18 07:08 Lymph # (Auto) 2.6 K/uL (1.0-4.3) 06/12/18 07:08 Mills # (Auto) 0.4 K/uL (0.0-0.8) 06/12/18 07:08 Eos # (Auto) 0.2 K/uL (0.0-0.7) 06/12/18 07:08 Baso # (Auto) 0.0 K/uL (0.0-0.2) 06/12/18 07:08 Neutrophils % (Manual) 36 % (50-75) L 06/09/18 04:32 Lymphocytes % (Manual) 60 % (20-40) H 06/09/18 04:32 Monocytes % (Manual) 3 % (0-10) 06/09/18 04:32 Eosinophils % (Manual) 1 % (0-4) 06/09/18 04:32 Nucleated RBC % 1 % (0-0) H 06/09/18 04:32 Differential Comment 06/08/18 11:51 Platelet Estimate Decreased (NORMAL) L 06/09/18 04:32 Large Platelets Present 06/09/18 04:32 Polychromasia Moderate 06/09/18 04:32 Basophilic Stippling Slight 06/09/18 04:32 Anisocytosis (manual) Marked 06/09/18 04:32 Microcytosis (manual) Slight 06/09/18 04:32 Macrocytosis (manual) Moderate 06/09/18 04:32 Tear Drop Cells Slight 06/09/18 04:32 Schistocytes Slight 06/09/18 04:32 Smear Path Review 06/08/18 11:51 Retic Count 2.7 % (0.5-1.5) H 06/09/18 04:34 Haptoglobin < 20.0 mg/dL (30.0-200.0) L 06/08/18 16:45 PT 12.4 SECONDS (9.7-12.2) H 06/09/18 04:32 INR 1.1 06/09/18 04:32 Fibrin Degrad Products Positive (NEGATIVE) H 06/08/18 13:28 Fibrin Degrad Prod, Qt >10<40 ug/mL (<10) H 06/08/18 13:28 D-Dimer, Quantitative 1832 ng/mlDDU (0-243) H 06/08/18 13:28 Sodium 144 mmol/L (132-148) 06/12/18 07:08 Potassium 4.1 mmol/L (3.6-5.2) 06/12/18 07:08 Chloride 107 mmol/L (98-107) 06/12/18 07:08 Carbon Dioxide 26 mmol/L (22-30) 06/12/18 07:08 Anion Gap 16 (10-20) 06/12/18 07:08 BUN 10 mg/dL (7-17) 06/12/18 07:08 Creatinine 0.5 mg/dL (0.7-1.2) L 06/12/18 07:08 Est GFR ( Amer) > 60 06/12/18 07:08 Est GFR (Non-Af Amer) > 60 06/12/18 07:08 Random Glucose 104 mg/dL (65-105) 06/12/18 07:08 Calcium 8.7 mg/dl (8.6-10.4) 06/12/18 07:08 Ferritin 143.0 ng/mL 06/10/18 08:27 Total Bilirubin 1.0 mg/dL (0.2-1.3) 06/12/18 07:08 Direct Bilirubin 0.7 mg/dL (0.0-0.4) H 06/08/18 18:53 AST 29 U/L (14-36) 06/12/18 07:08 ALT 31 U/L (9-52) 06/12/18 07:08 Alkaline Phosphatase 51 U/L (38-126) 06/12/18 07:08 Lactate Dehydrogenase 22844 U/L (313-618) H 06/08/18 16:45 Total Protein 5.9 g/dL (6.3-8.3) L 06/12/18 07:08 Albumin 4.0 g/dL (3.5-5.0) 06/12/18 07:08 Globulin 2.0 gm/dL (2.2-3.9) L 06/12/18 07:08 Albumin/Globulin Ratio 2.0 (1.0-2.1) 06/12/18 07:08 Lipase 91 U/L (23-300) 06/08/18 11:51 CA 19-9 Antigen 6.2 U/mL (0-37) 06/10/18 08:27 CA 125 Antigen 9.4 U/mL (0-35) 06/10/18 08:27 Vitamin B12 267 pg/mL (239-931) 06/08/18 16:45 Methylmalonic Acid 2596 nmol/L (87-318) H 06/08/18 16:45 Folate > 20.0 ng/mL 06/08/18 16:45 Procalcitonin 0.05 NG/ML (0.19-0.49) L 06/11/18 09:20 TSH 3rd Generation 1.16 mIU/L (0.46-4.68) 06/08/18 18:53 Beta HCG, Quant 3.01 mIU/ML 06/09/18 05:17 Urine Color Yellow (YELLOW) 06/08/18 12:04 Urine Clarity Clear (Clear) 06/08/18 12:04 Urine pH 6.0 (5.0-8.0) 06/08/18 12:04 Ur Specific Gifford 1.015 (1.003-1.030) 06/08/18 12:04 Urine Protein Negative mg/dL (NEGATIVE) 06/08/18 12:04 Urine Glucose (UA) Normal mg/dL (Normal) 06/08/18 12:04 Urine Ketones Trace mg/dL (NEGATIVE) 06/08/18 12:04 Urine Blood Negative (NEGATIVE) 06/08/18 12:04 Urine Nitrate Negative (NEGATIVE) 06/08/18 12:04 Urine Bilirubin Negative (NEGATIVE) 06/08/18 12:04 Urine Urobilinogen 2.0 mg/dL (0.2-1.0) H 06/08/18 12:04 Ur Leukocyte Esterase 3+ Aidan/uL (Negative) H 06/08/18 12:04 Urine WBC (Auto) 6 /hpf (0-5) H 06/08/18 12:04 Urine RBC (Auto) 1 /hpf (0-3) 06/08/18 12:04 Ur Squamous Epith Cells 2 /hpf (0-5) 06/08/18 12:04 Urine Bacteria Occ (<OCC) H 06/08/18 12:04 Stool Occult Blood Negative (NEGATIVE) 06/08/18 16:46 Acetaminophen < 10.0 ug/mL (10.0-30.0) L 06/08/18 20:00 Cold Agglutinins Negative (NEGATIVE) 06/10/18 08:27 Hepatitis A IgM Ab Negative (NEGATIVE) 06/08/18 18:53 Hep Bs Antigen Negative (NEGATIVE) 06/08/18 18:53 Hep B Core IgM Ab Negative (NEGATIVE) 06/08/18 18:53 Hepatitis C Antibody Negative (NEGATIVE) 06/08/18 18:53 HIV 1&2 Antibody Screen Negative (NEGATIVE) 06/10/18 08:27 Blood Type O POSITIVE 06/11/18 10:37 Blood Type Confirm O POSITIVE 06/08/18 12:40 Antibody Screen Negative 06/11/18 10:37 MIKEY, Poly Interpret Negative (NEGATIVE) 06/08/18 12:40 - Hospital Course Hospital Course: 57 year old postmenopausal female with PMHx: COPD presents to the ED with complaints of urinary frequency and fever for the past month. Patient also states that she noticed a change in color and odor of her urine from yellow to red and tailbone pain that started around the same time. She states that her tailbone pain feels tingly and does not radiate. She has been taking Tylenol 250 mg, twice a day, for the past 2 weeks for the fever and still going to work. 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 She denies having a UTI before. She also complains of generalized weakness, mild shortness of breath that she attributes with her COPD , and dark stools that she attributes to the new antibiotic that she is taking but does not know the name of. Her son at bedside states that she has looked more pale recently and her skin looks jaundiced. She also complains of a malodorous smell and itchiness from her vaginal but no vaginal discharge or bleeding that also started a month ago. She states that the malodorous smell from her vagina is the reason why she stopped eating meat several weeks ago. Patient denies dysuria, chest pain, palpitations, nausea, vomiting, diarrhea, constipation, abdominal pain, and numbness in the extremities. Upon admission, the patient's Hgb was 4.7, and she received 2u PRBCs. She responded well, and her Hgb was 7.4. Additionally, the patient clincially improved. 3 days later, the patient was again symptomatic, with weakness, fatigue. Her Hgb was 7.1, and she received 1u PRBC. She again responded well, and her Hgb was 9.2. Hemolysis detected via low free haptoglobin, elevated LDH, elevated urobilinogen, elevated D-dimer, and elevated fibrin split products. Hem /onc was consulted and ordered multiple tests to determine etiology. GI bleed was r/o with negative hemoccult. UA was poPatient was given vitamins B1, B12, and folate, as low levels were detected. A right ovarian simple cyst was incidentally found on CT, confirmed via transvaginal u/s, and the patient was seen by OBGYN Dr. Villalobos. Further work-up can be done as an outpatient. GI consulted for jaundice, slightly elevated LFTs. Abd u/s r/o biliary obstruction. Hepatitis and HIV panel negative. Rec outpatient colonoscopy. Upon discharge, the patient's Hgb was stable at 9.2. She continued to have pancytopenia, but her WBC and platelets were stable at 5.3 and 80 respectively. She was overall feeling much improved- denied weakness, jaundice, abnormal urine color. She denies urinary symptoms. Jaundice and conjuntival pallor were much improved. Work-up for cause of hemolysis has thus far been negative. There are still pending labs, for which the patient will follow-up with mycology teacher Dr. Harley this Tuesday afternoon. 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 Discharge Exam - Head Exam Head Exam: NORMAL INSPECTION Discharge Plan - Discharge Medications Prescriptions: Cyanocobalamin (Vitamin B-12) [B-12] 3,000 mcg SL DAILY #1 drops Folic Acid 1 mg PO BID #60 tab - Follow Up Plan Condition: SERIOUS Disposition: HOME/ ROUTINE Instructions: Vitamin B12 Deficiency and Folic Acid Deficiency Additional Instructions: Patient is cleared for discharge as per Dr. Tovar. She will follow-up with mycology teacher Dr. Harley this Saturday 06/16 at 1 PM for pending lab results and further management. She will also establish care with Dr. Manning within one week of discharge. Patient is being discharged on oral vitamin B12 and folic acid. Patient is to contact Dr. Harley and/or return to the ED if symptoms recur or are worsening. This was explained to the patient who understands and agrees. Referrals: Shelbie Manning MD [Non-Staff] - 1 Week Corine Harley MD [Staff Provider] - 06/16/18 1:00 pm
[2018-06-12 12:05] VITALS: O2SAT 100
[2018-06-12 14:45] VITALS: PULSE 77
[2018-06-13 11:21] LABS: % CD4 (T HELPER CELL) 59 Percent (30-61); % CD8 (SUPPRESSOR T CELL) 18 Percent (12-42); ABSOLUTE CD4 CELLS 1135 Cells/mcL (490-1740); ABSOLUTE CD8 CELLS 351 Cells/mcL (180-1170); ABSOLUTE LYMPHOCYTES 1920 Cells/mcL (850-3900); HELPER/SUPPRESSOR RATIO 3.24 Ratio (0.86-5.00)
== END 2018-06-12 14:40 | disposition home or self-care (01) | DRG 809 ==
LOC: C.ER 10:31 → C.9E 12:58 → C.5S 13:39
PROVIDERS: ADMIT Internal Medicine; ATTEND Internal Medicine
PROC: 30233N1 Transfusion of Nonautologous Red Blood Cells into Peripheral Vein, Percutaneous Approach (ICD-10-PCS; principal; 2018-06-08)
PROC: 0DB88ZX Excision of Small Intestine, Via Natural or Artificial Opening Endoscopic, Diagnostic (ICD-10-PCS; 2018-06-09)
DX: D61.818 Other pancytopenia (principal); N39.0 Urinary tract infection, site not specified; R17 Unspecified jaundice; B37.3 Candidiasis of vulva and vagina; D51.9 Vitamin B12 deficiency anemia, unspecified; J44.9 Chronic obstructive pulmonary disease, unspecified; N83.291 Other ovarian cyst, right side; R79.1 Abnormal coagulation profile; M53.3 Sacrococcygeal disorders, not elsewhere classified; K29.70 Gastritis, unspecified, without bleeding; Z87.891 Personal history of nicotine dependence; N83.201 Unspecified ovarian cyst, right side